=== PATIENT | female | born 1990 | race Caucasian/White ===

== ENCOUNTER 2016-10-16 05:29 | Emergency (ER) | payer OTHER ==
[~2016-10-16] VITALS: Ht 167.6 cm; Wt 74.3 kg
[~2016-10-16 05:29] MED LIST: HYDR1ELX13 PO; MINO80TA PO; NORGTAB39 PO
[2016-10-16 05:33] VITALS: TEMP 36.6; Ht 167.6 cm; Wt 74.3 kg
[2016-10-16] MEDS ORDERED: IUD'IUD IU (05:43)
[2016-10-16] MEDS ORDERED: SODIUM CHLORIDE 0.9% 1000ML 1,000 ML IV STA ×2 (05:48)
[2016-10-16] MEDS ORDERED: RANITIDINE HCL 50 MG/100 ML D5W IV STA (05:48)
[2016-10-16] MEDS ORDERED: ONDANSETRON INJ 2 MG/ML 2 ML VIAL IV STA (05:48)
[2016-10-16] MEDS ORDERED: ONDANSETRON INJ 2 MG/ML 2 ML VIAL ONE (05:48)
[2016-10-16] MEDS ORDERED: LIDOCAINE HCL 2% VISC SOLN 20 ML UDC PO STA (05:48)
[2016-10-16] MEDS ORDERED: ALUMINUM/MAGNESIUM SUSP 30 ML UDC PO STA ×2 (05:48→09:17)
[2016-10-16] MEDS ORDERED: RANITIDINE HCL 50 MG/100 ML D5W ONE (05:49)
[2016-10-16 06:02] LABS: BASO % 0.1 %; BASO ABS # 0.01 K/uL (0-0.2); COMPLETE YES; EOS % 0.5 %; HEMATOCRIT 40.4 % (37-47); IG% 0.1 %; LYMPH % 16.5 %; LYMPH ABS # 1.31 K/uL (1.2-3.4); MEAN CELL VOLUME 88.4 fL (80-100); MEAN CORPUSCULAR HEMOGLOBIN 30.9 pg (25-34); MEAN CORPUSCULAR HGB CONC 34.9 g/dl (32-36); MONO % 3.7 %; NEUT % 79.1 %; PLATELET COUNT 268 K/uL (130-400); RED BLOOD COUNT 4.57 M/uL (4.2-5.4); WHITE BLOOD COUNT 7.94 K/uL (4.8-10.8)
[2016-10-16] MEDS ORDERED: PANT40TA PO (06:04)
[2016-10-16 06:18] LABS: BUN/CREATININE RATIO 16.8 (10-20); CALCIUM 8.9 mg/dl (8.5-10.1); CREATININE 0.85 mg/dl (0.60-1.20); POTASSIUM 3.6 mmol/L (3.5-5.1)
[2016-10-16 06:39] LABS: PREG INTERNAL NEGATIVE QC NEG CLEAR BACKGROUND; PREG INTERNAL POSITIVE QC POS CONTROL LINE
[2016-10-16] MEDS ORDERED: DiphenhydrAMINE HCL 50 MG/ML VIAL IV STA (06:57)
[2016-10-16] MEDS ORDERED: METOCLOPRAMIDE HCL INJ 5 MG/ML 2 ML VIAL IV STA (06:57)
--- NOTE | 2016-10-16 07:17 | DIAGNOSTIC IMAGING REPORT ---
ABDOMINAL ULTRASOUND, RIGHT UPPER QUADRANT HISTORY: Epigastric pain. COMPARISON: None. FINDINGS: Liver morphology is normal. A 1.2 cm echogenic right hepatic lobe lesion likely reflects a hemangioma. There is no biliary ductal dilatation. No gallstones are identified. There is trace sludge within the gallbladder. No gallbladder wall thickening is noted. The pancreas is within normal limits by sonography. There is no right hydronephrosis. IMPRESSION: 1. No gallstones or biliary ductal dilatation. 2. Trace sludge within the gallbladder. No gallbladder wall thickening. 3. 1.2 cm echogenic right hepatic lobe lesion which likely reflects a hemangioma. Electronically signed by: Zafar Del Rio M.D. 10/16/2016 7:15 AM Dictated Date/Time: 10/16/2016 7:13 AM
[2016-10-16] MEDS ORDERED: MoRPHine SULFATE 4 MG/ML 1 ML CARP\\VIAL IV STA (08:11)
[2016-10-16 09:09] LABS: URINE APPEARANCE CLEAR (CLEAR); URINE BILIRUBIN NEG (NEG); URINE COLOR YELLOW; URINE NITRITE NEG (NEG); URINE PH >= 9.0 (4.5-7.5); UROBILINOGEN NEG (NEG); ZZUR CULT IF INDIC CLEAN CATCH NO
[2016-10-16 09:15] LABS: MANUAL MICROSCOPIC REQUIRED? NO; REVIEW REQ? NO
[2016-10-16 09:29] VITALS: BP 120/81; PULSE 67; O2SAT 100
--- NOTE | 2016-10-16 09:42 | EMERGENCY ROOM VISIT NOTE ---
ED Visit Note Care of this patient was signed out to me by Inge Mayfield PA-C at change of shift. Please see her dictation for full ED course and history. At that time, the patient was awaiting ultrasound results. Ultrasound was read by radiology as below and did show trace sludge, but no findings of acute cholecystitis. Patient was reevaluated and findings were discussed. At that time, she was complaining of continued discomfort. Abdominal exam revealed diffuse mild tenderness with no focal tenderness. She was given 4 mg morphine and a GI cocktail with significant improvement of her symptoms. She will be discharged home on Protonix and will follow-up with her primary care provider or return here as needed. ABDOMINAL ULTRASOUND, RIGHT UPPER QUADRANT FINDINGS: Liver morphology is normal. A 1.2 cm echogenic right hepatic lobe lesion likely reflects a hemangioma. There is no biliary ductal dilatation. No gallstones are identified. There is trace sludge within the gallbladder. No gallbladder wall thickening is noted. The pancreas is within normal limits by sonography. There is no right hydronephrosis. IMPRESSION: 1. No gallstones or biliary ductal dilatation. 2. Trace sludge within the gallbladder. No gallbladder wall thickening. 3. 1.2 cm echogenic right hepatic lobe lesion which likely reflects a hemangioma.
--- NOTE | 2016-10-17 00:44 | EMERGENCY ROOM VISIT NOTE ---
History First contact with patient: 05:43 Chief Complaint: ABDOMINAL PAIN Stated Complaint: NAUSEA,VOMITING,ABDOMINAL PAIN 24HRS Nursing Triage Summary: Diffuse abdominal pain Monday night, better Monday morning, could eat, but still didn't feel well. No alcohol at game Monday. Woke up at 2400 with vomiting. Current nausea and epigastric pain. No bowel movement for 2 days. History of Present Illness The patient is a 26 year old female who presents to the Emergency Room with complaints of nausea, vomiting and epigastric discomfort for the past day. Patient was a few episodes of vomiting that is nonbloody nonbilious non-coffee- ground in nature. Pain currently 5 out of 10. Described as irritating, nothing makes it better or worse. It does not radiate. Status post appendectomy. Patient denies chest pain, dyspnea, fever, chills, diarrhea, back pain, urinary symptoms. No history of similar symptoms in the past. No bad food exposure. Review of Systems See HPI for pertinent positives & negatives. A total of 10 systems reviewed and were otherwise negative. Past Medical/Surgical History Appendectomy Social History Smoking Status: Never Smoker Smokeless Tobacco Use: No Alcohol Use: occasionally Drug Use: none Occupation Status: student Current/Historical Medications Scheduled Iud's ([facility] Intrauterine Director Of Neurology), IU CONTINOUS Pantoprazole (Protonix), 40 MG PO DAILY Physical Exam Vital Signs Date Time Temp Pulse Resp B/P (MAP) Pulse Ox O2 Delivery O2 Flow Rate FiO2 10/16/16 09:29 67 16 120/81 100 10/16/16 09:26 67 15 120/81 10/16/16 08:33 66 16 119/80 10/16/16 07:59 78 18 114/81 10/16/16 07:05 54 16 122/78 99 Room Air 10/16/16 06:16 57 10/16/16 05:33 36.6 71 20 141/100 99 Room Air Physical Exam VITALS: Vitals are noted on the nurse's note and reviewed by myself. Vital signs stable. GENERAL: Pleasant female, in no acute distress, nondiaphoretic, well-developed well-nourished. SKIN: Capillary reflex less than 2 seconds. HEENT: Normocephalic. PERRLA. EOMI. Nares patent. Mucous membranes mildly dry. Neck is supple without nuchal rigidity. HEART: Regular rate and rhythm without murmurs gallops or rubs. LUNGS: Clear to auscultation bilaterally without wheezes, rales or rhonchi. No retractions or accessory muscle use. ABDOMEN: Positive bowel sounds x 4. Normal tympanic percussion. Soft, minimally tender epigastric region, without masses or organomegaly. Lemus sign negative. No guarding or rebound tenderness. No CVA tenderness MUSCULOSKELETAL: No gross musculoskeletal defects. No pedal edema. No calf tenderness. NEURO: Patient was alert and oriented to person place and time. Normal sensation to light and sharp touch. No focal neurological deficits. Medical Decision & Procedures Laboratory Results 10/16/16 05:46 Red Blood Count 4.57, Mean Corpuscular Volume 88.4, Mean Corpuscular Hemoglobin 30.9, Mean Corpuscular Hemoglobin Concent 34.9, Mean Platelet Volume 10.0, Neutrophils (%) (Auto) 79.1, Lymphocytes (%) (Auto) 16.5, Monocytes (%) (Auto) 3.7, Eosinophils (%) (Auto) 0.5, Basophils (%) (Auto) 0.1, Neutrophils # (Auto) 6.28, Lymphocytes # (Auto) 1.31, Monocytes # (Auto) 0.29, Eosinophils # (Auto) 0.04, Basophils # (Auto) 0.01 10/16/16 05:46 Test 10/16/16 05:46 10/16/16 08:52 White Blood Count 7.94 K/uL (4.8-10.8) Red Blood Count 4.57 M/uL (4.2-5.4) Hemoglobin 14.1 g/dL (12.0-16.0) Hematocrit 40.4 % (37-47) Mean Corpuscular Volume 88.4 fL (80-100) Mean Corpuscular Hemoglobin 30.9 pg (25-34) Mean Corpuscular Hemoglobin Concent 34.9 g/dl (32-36) Platelet Count 268 K/uL (130-400) Mean Platelet Volume 10.0 fL (7.4-10.4) Neutrophils (%) (Auto) 79.1 % Lymphocytes (%) (Auto) 16.5 % Monocytes (%) (Auto) 3.7 % Eosinophils (%) (Auto) 0.5 % Basophils (%) (Auto) 0.1 % Neutrophils # (Auto) 6.28 K/uL (1.4-6.5) Lymphocytes # (Auto) 1.31 K/uL (1.2-3.4) Monocytes # (Auto) 0.29 K/uL (0.11-0.59) Eosinophils # (Auto) 0.04 K/uL (0-0.5) Basophils # (Auto) 0.01 K/uL (0-0.2) RDW Standard Deviation 36.3 fL (36.4-46.3) RDW Coefficient of Variation 11.3 % (11.5-14.5) Immature Granulocyte % (Auto) 0.1 % Immature Granulocyte # (Auto) 0.01 K/uL (0.00-0.02) Anion Gap 8.0 mmol/L (3-11) Est Creatinine Clear Calc Drug Dose 102.4 ml/min Estimated GFR () 108.8 Estimated GFR (Non- 93.9 BUN/Creatinine Ratio 16.8 (10-20) Calcium Level 8.9 mg/dl (8.5-10.1) Total Bilirubin 0.5 mg/dl (0.2-1) Direct Bilirubin 0.1 mg/dl (0-0.2) Aspartate Amino Transf (AST/SGOT) 12 U/L (15-37) Alanine Aminotransferase (ALT/SGPT) 20 U/L (12-78) Alkaline Phosphatase 69 U/L (45-117) Total Protein 7.7 gm/dl (6.4-8.2) Albumin 4.4 gm/dl (3.4-5.0) Lipase 140 U/L (73-393) Human Chorionic Gonadotropin, Qual NEG (NEG) Urine Color YELLOW Urine Appearance CLEAR (CLEAR) Urine pH >= 9.0 (4.5-7.5) Urine Specific [place] 1.020 (1.000-1.030) Urine Protein NEG (NEG) Urine Glucose (UA) NEG (NEG) Urine Ketones NEG (NEG) Urine Occult Blood NEG (NEG) Urine Nitrite NEG (NEG) Urine Bilirubin NEG (NEG) Urine Urobilinogen NEG (NEG) Urine Leukocyte Esterase NEG (NEG) Medications Administered Medications (Trade) Dose Ordered Sig/Whitney Route Start Time Stop Time Status Last Admin Dose Admin Lidocaine HCl (Viscous Lidocaine 2% Soln) 10 ml NOW STAT PO 9/3/17 05:48 10/16/16 05:50 DC 10/16/16 08:20 10 ML Al Hydroxide/Mg Hydroxide (Maalox Susp) 30 ml NOW STAT PO 10/16/16 05:48 10/16/16 05:50 DC 10/16/16 08:20 30 ML Ondansetron HCl (Zofran Inj) 4 mg NOW STAT IV 10/16/16 05:48 10/16/16 05:50 DC 10/16/16 05:57 4 MG Ranitidine HCl (zANTac IV) 50 mg NOW STAT IV 10/16/16 05:48 10/16/16 05:50 DC 10/16/16 05:55 50 MG Sodium Chloride 1,000 ml @ 999 mls/hr Q1H1M STAT IV 10/16/16 05:48 10/16/16 06:48 DC 10/16/16 05:52 999 MLS/HR Sodium Chloride 1,000 ml @ 125 mls/hr Q8H STAT IV 10/16/16 05:48 10/16/16 10:06 DC 10/16/16 07:05 125 MLS/HR Metoclopramide HCl (Reglan Inj) 10 mg NOW STAT IV 10/16/16 06:57 10/16/16 06:58 MD 10/16/16 07:03 10 MG Diphenhydramine HCl (Benadryl Inj) 12.5 mg NOW STAT IV 10/16/16 06:57 10/16/16 06:58 MD 10/16/16 07:02 12.5 MG Morphine Sulfate (MoRPHine SULFATE INJ) 4 mg NOW STAT IV 10/16/16 08:11 10/16/16 08:13 MD 10/16/16 08:27 4 MG Al Hydroxide/Mg Hydroxide (Maalox Susp) 60 ml NOW STAT PO 10/16/16 09:17 10/16/16 09:18 DC 10/16/16 09:22 60 ML ED Course Prior records/ancillary studies reviewed. Triage Nursing notes reviewed. Additional history obtained from the family. The patient's history was concerning for nausea, vomiting, and abdominal pain. Differential diagnosis: Etiologies such as gastritis, food borne illness, infections, , diverticulitis, inflammatory bowel disease, obstruction, GI bleed, biliary pathology, as well as others were entertained. Physical examination findings: As above. Abdominal examination revealed minimal epigastric tenderness. Vital signs reviewed and revealed stable. ER treatment provided: IV hydration 1 L NSS. Zofran, Zantac, GI cocktail On reassessment the patient felt better. Patient was tolerating p.o. intake. Diagnostics interpretation by me: The labs revealed no worrisome leukocytosis. No worrisome electrolyte abnormality Imaging studies: Ultrasound negative for cholecystitis This appears to be consistent with epigastric discomfort most likely from gastritis and vomiting. Patient was pending reevaluation at time of shift change. She was signed out to Laney Randolph PA-C, pending medication and reevaluation in stable condition. Patient was neurovascularly and neurologically intact. She does not have acute abdomen on exam. She is tolerating fluids. She felt much better. She was advised to follow-up with family care in a few days or here in the ER sooner for abdominal pain, black or blood in the stool, vomiting, worsening signs or symptoms or needed. Patient does not have acute abdomen on exam. She is well-appearing. By the evaluation outlined above emergent etiologies such as diverticulitis, obstruction, cardiac sources, mesenteric ischemia, aortic pathology, inflammatory bowel disease, renal colic, PUD, biliary pathology, UTI, as well as others were deemed relatively unlikely. The pt informed about the findings as listed above. All questions were answered and pleased with the treatment. Return instructions were outlined and the patient was discharged in stable condition. Outpatient prescription management: Protonix, Zofran Referral: The patient was referred to their primary care physician for follow-up in 2 to 3 days for a recheck of the current condition. Case reviewed with my attending. Medical Decision As above Medication Reconcilliation Current Medication List: was personally reviewed by me Blood Pressure Screening Patient's blood pressure: Elevated blood pressure Blood pressure disposition: Elevated BP felt to be situational Impression Primary Impression: Vomiting Additional Impression: Abdominal discomfort, epigastric Departure Information Dispostion Home / Self-Care Condition GOOD Prescriptions Pantoprazole (Protonix) 40 Mg Tab 40 MG PO DAILY for 14 Days, #14 TAB Prov: Patricia Mayfield .JERONIMO 10/16/16 Referrals No Doctor, Assigned (PCP) Patient Instructions My [facility] Additional Instructions DO NOT drive, drink alcohol, operate machinery, or perform dangerous activities today. You were given medications in the ER that can affect your ability to safely function or operate a vehicle. Protonix 40 m tablet daily for next 2 weeks. Take this on an empty stomach. Try Maalox or Zantac for breakthrough symptoms for reflux. Zofran(odansetron) tablets 4mg: Take one and allow it to dissolve in your mouth every four to six hours as needed for nausea or vomiting. Rest and drink plenty of fluids as tolerated. Slow sips of water or sports drinks are recommended instead of large amounts all at once. Continue current medications. Once your stomach is settled start with a clear liquid diet (jello, soup broth, etc.) and then advance as tolerated. You should avoid full, heavy meals for about 24 hrs from the time your symptoms resolved. Return to the ER for persistent vomiting, fevers, abdominal pain, chest pains, difficulty breathing, black or bloody stools, worsening of your condition, or as needed. Follow up with your primary physician in 2-3 days for a recheck of your current condition. Problem Qualifiers Primary Impression: Vomiting Vomiting type: unspecified Vomiting Intractability: non-intractable Nausea presence: with nausea Qualified Codes: R11.2 - Nausea with vomiting, unspecified
== END 2016-10-16 09:33 | disposition home or self-care (01) ==
LOC: C.EDB 05:30 → C.EDA 09:33
DX: R11.2 Nausea with vomiting, unspecified (principal); R10.13 Epigastric pain; Z79.899 Other long term (current) drug therapy; Z97.5 Presence of (intrauterine) contraceptive device

== ENCOUNTER → 2017-02-03 | Outpatient (CLI) | payer OTHER ==
[~2017-02-03] MED LIST changes: -HYDR1ELX13 PO; +IUD'IUD IU; -MINO80TA PO; -NORGTAB39 PO
== END | disposition home or self-care (01) ==
LOC: C.PATH 14:54
PROVIDERS: ATTEND Obstetrics & Gynecology
DX: N87.1 Moderate cervical dysplasia (principal)

== ENCOUNTER → 2017-06-06 | Outpatient (CLI) | payer OTHER | END | disposition home or self-care (01) | LOC: C.PATHSPEC 16:07 | PROVIDERS: ATTEND Obstetrics & Gynecology | DX: N87.1 Moderate cervical dysplasia (principal) ==

== ENCOUNTER → 2017-06-06 | Outpatient (CLI) | payer OTHER | END | disposition home or self-care (01) | LOC: C.PAPS 18:11 | PROVIDERS: ATTEND Obstetrics & Gynecology | DX: N87.1 Moderate cervical dysplasia (principal); Z97.5 Presence of (intrauterine) contraceptive device ==

== ENCOUNTER 2022-02-04 07:17 | Inpatient (IN) ==
[2022-02-04] MEDS ORDERED: LACTATED RINGER'S 2,000 ML IV ONE (07:58)
[2022-02-04] MEDS: LACTATED RINGER'S 1,000 ML IV SCH ×2 (08:05→09:10)
--- NOTE | 2022-02-04 08:12 | History & Physical Report ---
Date of Service February 04, 2022 Assessment & Plan (1) Acute dehydration: (2) Nausea and vomiting during : Plan: 31 yo at 37+ wsk with N&V for 3 days, dehydration, COVID 19 a month ago VSS afebrile No s/s of LOF nor labor FHR reassuring Plan to observe, monitor, labs, IVF bolus,consult hospitalist (3) COVID-19: (4) No leakage of amniotic fluid into vagina: History of Present Illness Chief Complaint: Nausea vomiting, leakage of fluid Primary Care Provider: [facility] Patient is a 31-year-old at 37 +weeks who takes her OB care from [facility] N&V for 3 days non stop, can not eat or drink anything, everything comes back up. She was in ER yesterday and was given IVF, Antiemetics but symptosm restarted again after she went home. BM 4 days ago, flatus + No abd pain Irregular ctxs LOF while vomiting +FM No medical problems Her has been otherwise uncomplicated No fever/ chills/ dysuria/ flank pain She had COVID a month ago and recovered well. Tested + yesterday in ER Allergies Allergy/AdvReac Type Severity Reaction Status Date / Time aspirin Allergy Unknown HIVES;LIPS Verified 06/21/13 05:39 SWELL ibuprofen Allergy Unknown HIVES;LIPS Verified 06/21/13 05:39 SWELL Sulfa (Sulfonamide Allergy Unknown HIVES;LIPS Verified 06/21/13 05:39 Antibiotics) SWELL Home Medications Medication Instructions Recorded Confirmed Type IUD'S ([facility] INTRAUTERINE ENERGY CONSERVATION SPECIALIST) intrauterine CONTINOUS ##0 10/16/16 History metoclopramide HCl 10 mg tablet 10 mg PO Q6H PRN nausea and 02/03/22 Rx (Reglan) vomiting #20 tabs Patient History Medical History Social History Smoking Status: Never smoker Preferred Language: Sinhala Feels Safe at Home: Yes [place] [employer] History No STD Review of Systems as per Subjective / HPI and + malaise Physical Exam Constitutional: WD/WN, vitals as above + frail appearing and + malnourished Vomiting green material Gastrointestinal (Abdomen): normal bowel sounds, soft, nontender, no hepatosplenomegaly (gravid, NT) Genitourinary: normal external appearance (DRY, no leaking on cough) OB Exam Abdomen: + vertex Manual OB Exam: + cervical dilation 1 cm, + cervical effacement 50% and + station -2 OB Exam Monitor Tracing: + external uterine monitor used (ctxs q 5-6 min) and + category I Amnisure negative
[2022-02-04] MEDS ORDERED: PANTOprazole 40 MG in SYRINGE 0 ML IV ONE (08:15)
[2022-02-04] MEDS: ONDANSETRON INJ 2 MG/ML 2 ML VIAL IV PRN ×2 (08:27→15:56)
[2022-02-04 09:30] LABS: Basophils # (auto) 0.01 K/uL (0-0.2); Basophils % (auto) 0.1 %; Hematocrit (blood only) 36.7 % (34.1-44.9); Hemoglobin 12.5 g/dl (12.0-16.0); Immature Granulocytes # (auto) 0.08 K/uL (0.00-0.02); Immature Granulocytes % (auto) 0.7 %; Lymphocytes # (auto) 1.36 K/uL (1.2-3.4); Mean Corpuscular Hgb Conc 34.1 g/dL (32.0-36.0); Mean Corpuscular Volume 91.1 fL (80.0-100.0); Mean Platelet Volume 9.9 fL (9.4-12.3); Monocytes % (auto) 3.5 %; Neutrophils # (auto) 9.44 K/uL (1.4-6.5); Neutrophils % (auto) 83.7 %; Platelet Count 244 K/uL (130-400); RDW Coefficient of Variation 11.5 % (11.5-14.5); RDW Standard Deviation 38.4 fL (36.4-46.3); Red Blood Count 4.03 M/uL (3.93-5.22); White Blood Count 11.29 K/ul (4.8-10.8)
[2022-02-04] MEDS: PROMETHAZINE HCL 25 MG in SODIUM CHLORIDE 0.9% 50 ML IV PRN (09:36)
[2022-02-04 09:58] LABS: Appearance Urine Clear (Clear); Bacteria Urine Automated 1+ (Negative); Bilirubin Urine Negative (Negative); Blood Urine 2+ (Negative); Color Urine Yellow; Epithelial Cell Urine Auto >30 /lpf (0-5); Glucose Urine UA Negative (Negative); Ketones Urine 4+ (Negative); Leukocyte Esterase Urine Negative (Negative); Nitrite Urine Negative (Negative); Protein Urine 1+ (Negative); Specific Gravity Urine 1.028 (1.000-1.030); Urobilinogen Urine Negative (Negative); pH Urine 5.5 (4.5-7.5)
[2022-02-04] MEDS ORDERED: MULTI VITAMIN INFUSION IV SCH (10:00)
[2022-02-04] MEDS ORDERED: LACTATED RINGER S IV SCH (10:00)
[2022-02-04 10:01] LABS: Albumin Globulin Ratio 1.2 (0.9-2); Albumin Level 3.6 gm/dl (3.4-5.0); BUN Creatinine Ratio 19.7 (10-20); Bilirubin,Total 0.9 mg/dl (0.2-1.0); Calcium 8.3 mg/dl (8.5-10.1); Creatinine Clr Calc Pharmacy 140.7 ml/min; Globulin 2.9 gm/dl (2.5-4.0); Total Protein 6.5 gm/dl (6.0-8.3)
[2022-02-04] MEDS: LACTATED RINGER'S 1,000 ML IV PRN ×2 (10:50→14:53)
[2022-02-04] MEDS ORDERED: LACTATED RINGER'S 1,000 ML IV ONE (11:35)
--- NOTE | 2022-02-04 11:39 | Labor Progress Brief Note ---
Date of Service February 04, 2022 Subjective still has nausea and vomiting persisting despite IV fluid bolus Constitutional: as per Subjective / HPI and + malaise Assessment & Plan (1) Acute dehydration: Plan IV hydration Physical Exam Constitutional: WD/WN, vitals as above Gastrointestinal (Abdomen): Inspection/Auscultation: abdomen normal to inspection abdomen soft and non-tender Musculoskeletal: Extremities: extremities normal to inspection Genitourinary: OB Exam Monitor Tracing: + external FHT monitor used, + external uterine monitor used, + category I and + normal FHT variability Results & Data ([facility] [place]) Vital Signs (Past 12 Hours) Vital Signs Temp Pulse Resp BP Pulse Ox 02/04/22 10:57 36.9 C 20 02/04/22 11:30 65 99 02/04/22 11:25 71 98 02/04/22 11:14 68 98 02/04/22 11:09 68 98 02/04/22 11:04 67 99 02/04/22 10:59 75 97 02/04/22 10:54 83 99 02/04/22 10:49 106 H 100 02/04/22 10:48 101 H 153/84 H 02/04/22 10:44 74 96 Laboratory Results 02/04/22 02/04/22 02/04/22 08:38 08:54 08:54 WBC 11.29 H RBC 4.03 Hgb 12.5 Hct 36.7 MCV 91.1 MCH 31.0 MCHC 34.1 RDW Std Deviation 38.4 RDW Coeff of Alonso 11.5 Plt Count 244 MPV 9.9 Immature Gran % (Auto) 0.7 Neut % (Auto) 83.7 Lymph % (Auto) 12.0 Hood % (Auto) 3.5 Eos % (Auto) 0.0 Baso % (Auto) 0.1 Neut # (Auto) 9.44 H Lymph # (Auto) 1.36 Hood # (Auto) 0.40 Eos # (Auto) 0.00 Baso # (Auto) 0.01 Immature Gran # (Auto) 0.08 H Sodium 135 L Potassium 4.0 Chloride 104 Carbon Dioxide 20 L Anion Gap 11 BUN 12 Creatinine 0.61 Est Cr Clr Drug Dosing 140.7 Est GFR ( Amer) 139.0 Est GFR (Non-Af Amer) 120.0 BUN/Creatinine Ratio 19.7 Glucose 78 Calcium 8.3 L Total Bilirubin 0.9 AST 10 L ALT 6 L Alkaline Phosphatase 108 H Total Protein 6.5 Albumin 3.6 Globulin 2.9 Albumin/Globulin Ratio 1.2 Amylase 98 Lipase 46 Urine Color Urine Appearance Urine pH Ur Specific [place] Urine Protein Urine Glucose (UA) Urine Ketones Urine Blood Urine Nitrite Urine Bilirubin Urine Urobilinogen Ur Leukocyte Esterase Urine WBC (Auto) Urine RBC (Auto) U Hyaline Cast (Auto) U Epithel Cells (Auto) Urine Bacteria (Auto) Amniotic Protein NEG 02/04/22 09:35 WBC RBC Hgb Hct MCV MCH MCHC RDW Std Deviation RDW Coeff of Alonso Plt Count MPV Immature Gran % (Auto) Neut % (Auto) Lymph % (Auto) Hood % (Auto) Eos % (Auto) Baso % (Auto) Neut # (Auto) Lymph # (Auto) Hood # (Auto) Eos # (Auto) Baso # (Auto) Immature Gran # (Auto) Sodium Potassium Chloride Carbon Dioxide Anion Gap BUN Creatinine Est Cr Clr Drug Dosing Est GFR ( Amer) Est GFR (Non-Af Amer) BUN/Creatinine Ratio Glucose Calcium Total Bilirubin AST ALT Alkaline Phosphatase Total Protein Albumin Globulin Albumin/Globulin Ratio Amylase Lipase Urine Color Yellow Urine Appearance Clear Urine pH 5.5 Ur Specific [place] 1.028 Urine Protein 1+ H Urine Glucose (UA) Negative Urine Ketones 4+ H Urine Blood 2+ H Urine Nitrite Negative Urine Bilirubin Negative Urine Urobilinogen Negative Ur Leukocyte Esterase Negative Urine WBC (Auto) 5-10 H Urine RBC (Auto) 5-10 H U Hyaline Cast (Auto) 1-5 U Epithel Cells (Auto) >30 H Urine Bacteria (Auto) 1+ H Amniotic Protein
[2022-02-04] MEDS ORDERED: OXYTOCIN 30 UNITS/500 ML BAG IV PRN ×2 (12:09→15:24)
[2022-02-04] MEDS ORDERED: LIDOCAINE 1% LOCAL 20 ML VIAL INFIL PRN (12:09)
[2022-02-04 12:32] LABS: Hematocrit (blood only) 37.1 % (34.1-44.9); Hemoglobin 12.7 g/dl (12.0-16.0); Mean Corpuscular Hemoglobin 31.1 pg (25.0-34.0); Mean Corpuscular Hgb Conc 34.2 g/dL (32.0-36.0); Mean Corpuscular Volume 90.9 fL (80.0-100.0); Mean Platelet Volume 9.6 fL (9.4-12.3); Platelet Count 234 K/uL (130-400); RDW Coefficient of Variation 11.7 % (11.5-14.5); RDW Standard Deviation 38.5 fL (36.4-46.3); Red Blood Count 4.08 M/uL (3.93-5.22); White Blood Count 16.51 K/ul (4.8-10.8)
--- NOTE | 2022-02-04 12:57 | Consultation ---
Date of Consultation February 04, 2022 Assessment & Plan (1) Nausea and vomiting during : - persistent n/v at 37+ weeks gestation - labs remarkable only for leukocytosis and bicarb 20 likely due to vomiting, dehydration - UA positive for WBC, ketones, bacteria - will defer to OB whether they would treat this - given WBC, could consider treating positive UA - would also recommend checking blood cultures - lipase, amylase negative - cannot rule out pancretitis based on labs alone - imaging would need to be considered, could start with abdominal ultrasound but unclear of utility in 37 weeks patient - added on hepatitis panel, althought LFTs are wnl - Triglycerides mildly elevated and would not precipitate pancreatitis at this level - would continue with supportive care and anti-emetics for now - monitor for BMs as patient has been constipated since Monday - if imaging considered would start with abdominal/RUQ ultrasound for now (2) Acute dehydration: - continue IVF as has been started (3) COVID-19: - had reproted diagnosis 1 month prior to admission - positive again 02/03/ - can consider repeating - unclear if contributing to current symptoms or if this represents reinfection - not hypoxic and afebrile - no indication for treatment for COVID19 at this time Plan Thank you for the consultation, we will continue to follow. [facility] any questions or concerns. Poncho Blake MD Hospital Medicine History of Present Illness Requesting Physician: Dr. Marlon Galvan Reason for Consultation: persistent nausea and vomiting Attending Physician: Kimberly Shepherd MD History of Present Illness The patient is a 31 year old woman at 37+ weeks gestation who presented with 3 days of unremitting n/v. She reports this started Monday02/01/2022 with nausea and vomiting. She denied abdominal pain until yesterday prior to admission and denied any vaginal discharge or bleeding. She denies diarrhea and has not had a BM since 02/01/2022. She reports minimal PO intake of crackers mostly and some water but otherwise unable to tolerate PO. She denied fever or chills, shortness of breath, chest pain, cough, dysuria. Patient reportedly had COVID 1 month ago and symptoms have resolved since. She tested positive in the ED again on presentation. She received IVF and anti- emetics with some response since hospitalization. She is having contractions and is admitted to the L&D service for monitoring. The patient has had stable vital signs since admission. Labs were significant for WBC 11-->16. Cr is wnl. UA positive for WBC and bacteria. Allergies Allergy/AdvReac Type Severity Reaction Status Date / Time aspirin Allergy Unknown HIVES;LIPS Verified 06/21/13 05:39 SWELL ibuprofen Allergy Unknown HIVES;LIPS Verified 06/21/13 05:39 SWELL Sulfa (Sulfonamide Allergy Unknown HIVES;LIPS Verified 06/21/13 05:39 Antibiotics) SWELL Home Medications Medication Instructions Recorded Confirmed Type metoclopramide HCl 10 mg tablet 10 mg PO Q6H PRN nausea and 02/03/22 02/04/22 Rx (Reglan) vomiting #20 tabs prenat.vits,noé,kva-yqxe-ztmak 1 tab PO DAILY 02/04/22 02/04/22 History Patient History Medical History (Updated 02/04/22 @ 11:38 by Doron Farley MD) Acute dehydration Surgical History (Updated 02/04/22 @ 08:45 by Keely Alejo RN) History of appendectomy History of tonsillectomy and adenoidectomy Family History (Updated 02/04/22 @ 08:46 by Keely Alejo RN) Mother Melanoma Mother Lymphoma Social History (Updated 02/04/22 @ 08:48 by Keely Alejo RN) Smoking Status: Never smoker Hx Alcohol Use: No Hx Substance Use: No Preferred Language: Urdu Communication Ability: Effective Visual Impairment: No Limitations Hearing Ability: Normal Biological Lab Technician Required: No Beliefs That Will Affect Care: None marital status: Current Living Situation: Spouse Current Living Situation Comment: Lives with current occupational status: employed 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 NECK: No stridor, no adenopathy, no meningismus, trachea is midline. LUNGS: Clear to auscultation bilaterally, no wheeze, no rhonchi, breath sounds equal. HEART: 2/6 systolic murmur, regular rate and rhythm. ABDOMEN: Soft, nontender, bowel sounds positive, no peritonitis. Gravid uterus. EXTREMITIES: No cyanosis or edema, full range of motion of all the joints without pain or difficulty, no signs for acute trauma. NEUROLOGIC: Oriented x 3, no acute motor or sensory deficits, no focal weakness. SKIN: No rash, no jaundice, no diaphoresis. Results & Data ([facility]) Vital Signs (Past 12 Hours) Vital Signs Temp Pulse Resp BP Pulse Ox 02/04/22 10:57 36.9 C 20 02/04/22 12:05 73 99 02/04/22 12:00 72 99 02/04/22 11:55 71 100 02/04/22 11:50 81 99 02/04/22 11:45 72 98 02/04/22 11:40 72 99 02/04/22 11:35 68 99 02/04/22 11:30 65 99 02/04/22 11:25 71 98 02/04/22 11:14 68 98 02/04/22 11:09 68 98 02/04/22 11:04 67 99 02/04/22 10:59 75 97 02/04/22 10:54 83 99 02/04/22 10:49 106 H 100 02/04/22 10:48 101 H 153/84 H 02/04/22 10:44 74 96 Diagnostic Findings Laboratory Results WBC 16.51 K/ul (4.8-10.8) H 02/04/22 12: RBC 4.08 M/uL (3.93-5.22) 02/04/22 12:21 Hgb 12.7 g/dl (12.0-16.0) 02/04/22 12:21 Hct 37.1 % (34.1-44.9) 02/04/22 12:21 MCV 90.9 fL (80.0-100.0) 02/04/22 12:21 MCH 31.1 pg (25.0-34.0) 02/04/22 12:21 MCHC 34.2 g/dL (32.0-36.0) 02/04/22 12:21 RDW Std Deviation 38.5 fL (36.4-46.3) 02/04/22 12:21 RDW Coeff of Alonso 11.7 % (11.5-14.5) 02/04/22 12:21 Plt Count 234 K/uL (130-400) 02/04/22 12:21 MPV 9.6 fL (9.4-12.3) 02/04/22 12:21 Immature Gran % (Auto) 0.7 % 02/04/22 08:54 Neut % (Auto) 83.7 % 02/04/22 08:54 Lymph % (Auto) 12.0 % 02/04/22 08:54 [place] % (Auto) 3.5 % 02/04/22 08:54 Eos % (Auto) 0.0 % 02/04/22 08:54 Baso % (Auto) 0.1 % 02/04/22 08:54 Neut # (Auto) 9.44 K/uL (1.4-6.5) H 02/04/22 08:54 Lymph # (Auto) 1.36 K/uL (1.2-3.4) 02/04/22 08:54 [place] # (Auto) 0.40 K/uL (0.24-0.82) 02/04/22 08:54 Eos # (Auto) 0.00 K/uL (0-0.50) 02/04/22 08:54 Baso # (Auto) 0.01 K/uL (0-0.2) 02/04/22 08:54 Immature Gran # (Auto) 0.08 K/uL (0.00-0.02) H 02/04/22 08:54 Sodium 135 mmol/L (136-145) L 02/04/22 08:54 Potassium 4.0 mmol/L (3.5-5.1) 02/04/22 08:54 Chloride 104 mmol/L (98-107) 02/04/22 08:54 Carbon Dioxide 20 mmol/L (21-32) L 02/04/22 08:54 Anion Gap 11 (3-11) 02/04/22 08:54 BUN 12 mg/dl (6-23) 02/04/22 08:54 Creatinine 0.61 mg/dl (0.6-1.2) 02/04/22 08:54 Est Cr Clr Drug Dosing 140.7 ml/min 02/04/22 08:54 Est GFR ( Amer) 139.0 ml/min 02/04/22 08:54 Est GFR (Non-Af Amer) 120.0 ml/min 02/04/22 08:54 BUN/Creatinine Ratio 19.7 (10-20) 02/04/22 08:54 Glucose 78 mg/dl (70-99(Fasting)) 02/04/22 08:54 Calcium 8.3 mg/dl (8.5-10.1) L 02/04/22 08:54 Total Bilirubin 0.9 mg/dl (0.2-1.0) 02/04/22 08:54 AST 10 U/L (13-39) L 02/04/22 08:54 ALT 6 U/L (7-52) L 02/04/22 08:54 Alkaline Phosphatase 108 U/L (34-104) H 02/04/22 08:54 Total Protein 6.5 gm/dl (6.0-8.3) 02/04/22 08:54 Albumin 3.6 gm/dl (3.4-5.0) 02/04/22 08:54 Globulin 2.9 gm/dl (2.5-4.0) 02/04/22 08:54 Albumin/Globulin Ratio 1.2 (0.9-2) 02/04/22 08:54 Triglycerides 243 mg/dl (0-150) H 02/04/22 11:19 Amylase 98 U/L (25-115) 02/04/22 08:54 Lipase 46 U/L (11-82) 02/04/22 08:54 Urine Color Yellow 02/04/22 09:35 Urine Appearance Clear (Clear) 02/04/22 09:35 Urine pH 5.5 (4.5-7.5) 02/04/22 09:35 Ur Specific [place] 1.028 (1.000-1.030) 02/04/22 09:35 Urine Protein 1+ (Negative) H 02/04/22 09:35 Urine Glucose (UA) Negative (Negative) 02/04/22 09:35 Urine Ketones 4+ (Negative) H 02/04/22 09:35 Urine Blood 2+ (Negative) H 02/04/22 09:35 Urine Nitrite Negative (Negative) 02/04/22 09:35 Urine Bilirubin Negative (Negative) 02/04/22 09:35 Urine Urobilinogen Negative (Negative) 02/04/22 09:35 Ur Leukocyte Esterase Negative (Negative) 02/04/22 09:35 Urine WBC (Auto) 5-10 /hpf (0-5) H 02/04/22 09:35 Urine RBC (Auto) 5-10 /hpf (0-4) H 02/04/22 09:35 U Hyaline Cast (Auto) 1-5 /lpf (0-5) 02/04/22 09:35 U Epithel Cells (Auto) >30 /lpf (0-5) H 02/04/22 09:35 Urine Bacteria (Auto) 1+ (Negative) H 02/04/22 09:35 Amniotic Protein NEG 02/04/22 08:38 Medications Administered Current Inpatient Medications Promethazine HCl 25 mg/ Sodium (Chloride) 51 mls @ 204 mls/hr IV Q6H PRN PRN Reason: Nausea And Vomiting Stop: 03/06/22 07:52 Last Admin: 02/04/22 09:36 Dose: 204 mls/hr Lactated Ringer's (Lr) 1,000 mls @ 125 mls/hr IV .Q8H PRN; Protocol PRN Reason: L&D Protocol Stop: 02/06/22 12:08 Last Admin: 02/04/22 10:50 Dose: 125 mls/hr Oxytocin (Pitocin) 30 units in 500 mls @ 333.333 mls/hr IV .Q1H30M PRN; Protocol PRN Reason: Bleeding Control Stop: 03/06/22 12:08 Lidocaine HCl (Lidocaine 1% Local 20 Ml Vial) 20 ml INFIL ONCE PRN PRN Reason: Perineal/vaginal Repair Stop: 03/06/22 12:08 Metoclopramide HCl (Metoclopramide Hcl Inj 5 Mg/Ml 2 Ml Vial) 10 mg IV Q6H PRN PRN Reason: Nausea Stop: 03/06/22 07:53 Misoprostol (Misoprostol 50 Mcg Tab) 50 mcg PO Q4 RAHEL Stop: 03/06/22 15:59 Ondansetron HCl (Ondansetron Inj 2 Mg/Ml 2 Ml Vial) 4 mg IV Q4H PRN PRN Reason: Nausea And Vomiting Stop: 03/06/22 07:52 Last Admin: 02/04/22 08:27 Dose: 4 mg Ondansetron HCl (Ondansetron 4 Mg Od Tab) 4 mg PO Q4H PRN PRN Reason: Nausea And Vomiting Stop: 03/06/22 07:52
[2022-02-04] MEDS ORDERED: miSOPROStoL 50 MCG TAB PO ONE (13:30)
[2022-02-04] MEDS: METOCLOPRAMIDE HCL INJ 5 MG/ML 2 ML VIAL IV PRN (13:46)
[2022-02-04] MEDS ORDERED: ePHEDrine sulfate 50 MG/ML AMP ONE (14:36)
[2022-02-04] MEDS ORDERED: SODIUM CHLORIDE 0.9% INJ 10 ML VIAL ONE (14:37)
[2022-02-04] MEDS ORDERED: fentaNYL citrate 100 MCG/2 ML VIAL ONE (14:37)
[2022-02-04] MEDS ORDERED: BUPIVACAINE 0.25% 30 ML VIAL ONE (14:38)
[2022-02-04] MEDS ORDERED: fentaNYL 2MCG/ML ROPIVACAINE 1.25MG/ML 100 ML BAG EPI ONE (14:38)
[2022-02-04] MEDS ORDERED: LIDOCAINE 2%/EPINEPHRINE 1:200,000 20 ML SDV ONE (14:38)
[2022-02-04] MEDS ORDERED: CITRIC ACID/SODIUM CITRATE 15 ML UDC ONE (16:16)
[2022-02-04] MEDS ORDERED: ePHEDrine sulfate 50 MG/ML AMP IV PRN ×2 (16:26→20:12)
[2022-02-04] MEDS ORDERED: NALBUPHINE HCL INJ 10 MG/ML AMP IV PRN ×2 (16:26→20:12)
[2022-02-04] MEDS ORDERED: NALOXONE HCL 0.4 MG/1 ML VIAL/CARP IV PRN ×2 (16:26→20:12)
[2022-02-04] MEDS ORDERED: NALOXONE HCL 1 MG in SODIUM CHLORIDE 0.9% 1000ML 1,000 ML IV PRN ×2 (16:26→20:12)
[2022-02-04] MEDS ORDERED: fentaNYL 2MCG/ML ROPIVACAINE 1.25MG/ML 100 ML BAG EPI PRN (16:26)
[2022-02-04] MEDS ORDERED: diphenhydrAMINE 50 MG/ML VIAL IV PRN ×3 (16:26→20:12)
[2022-02-04] MEDS ORDERED: OXYTOCIN 10 UNITS/ML 10ML VIAL ONE ×2 (16:26→16:28)
[2022-02-04] MEDS ORDERED: ONDANSETRON INJ 2 MG/ML 2 ML VIAL IV PRN ×3 (16:26→20:12)
--- NOTE | 2022-02-04 16:27 | Anesthesiology Consultation ---
Date of Service February 04, 2022 Assessment & Plan Chart Review Chart Review: Patient NOT seen in Pre Admission Testing and Acceptable Risk for Labor Epidural Consults Requested none ASA ASA2 Proposed Anesthesia Anesthesia Type: Labor Epidural Risk / Benefits Reviewed With: PT / POA / Parent / Guardian, Accepts Plan and Informed Consent Obtained History Height/Weight Height: 5 ft 6 in Weight: 79.379 kg Allergies Allergy/AdvReac Type Severity Reaction Status Date / Time aspirin Allergy Unknown HIVES;LIPS Verified 06/21/13 05:39 SWELL ibuprofen Allergy Unknown HIVES;LIPS Verified 06/21/13 05:39 SWELL Sulfa (Sulfonamide Allergy Unknown HIVES;LIPS Verified 06/21/13 05:39 Antibiotics) SWELL Medications Home Medications Medication Instructions Recorded Confirmed Last Taken metoclopramide HCl 10 mg tablet 10 mg PO Q6H PRN nausea and 02/03/22 02/04/22 02/03/22 23:00 (Reglan) vomiting #20 tabs prenat.vits,noé,yiu-iejt-qfrje 1 tab PO DAILY 02/04/22 02/04/22 Unknown Active Medications Generic Name Dose Route Start Last Admin Trade Name Freq PRN Reason Stop Dose Admin Promethazine HCl 25 mg/ Sodium 51 mls @ 204 mls/hr 02/04/22 07:53 02/04/22 09:36 Chloride IV 03/06/22 07:52 204 mls/hr Q6H PRN Administration Nausea And Vomiting Lactated Ringer's 1,000 mls @ 125 mls/hr 02/04/22 12:09 02/04/22 15:35 Lr IV 02/06/22 12:08 125 mls/hr .Q8H PRN Infusion L&D Protocol Protocol Metoclopramide HCl 10 mg 02/04/22 07:54 02/04/22 13:46 Metoclopramide Hcl Inj 5 Mg/Ml 2 Ml Vial IV 03/06/22 07:53 10 mg Q6H PRN Administration Nausea Ondansetron HCl 4 mg 02/04/22 07:53 02/04/22 15:56 Ondansetron Inj 2 Mg/Ml 2 Ml Vial IV 03/06/22 07:52 4 mg Q4H PRN Administration Nausea And Vomiting Past Medical History Medical History (Updated 02/04/22 @ 11:38 by Doron Farley MD) Acute dehydration Exercise / Class Metabolic Activity II 4-5 Yardwork/Stairs/Walk up hill Past Family History Family History (Updated 02/04/22 @ 08:46 by Keely Alejo, SHAMEKA) Mother Melanoma Mother Lymphoma Past Surgical History Surgical History (Updated 02/04/22 @ 08:45 by Keely Alejo, SHAMEKA) History of appendectomy History of tonsillectomy and adenoidectomy Past Anesthesia History No Hx of Anesthesia Complications and No Family Hx of Anesthesia Complications History of PONV No Hx of PONV and No Hx of Motion Sickness Social History Smoking Status: Never smoker Hx Alcohol Use: No Hx Substance Use: No substance use type: does not use Physical Exam Vital Signs Last Vital Signs Temp 36.8 C 02/04/22 15:45 Pulse 76 02/04/22 16:23 Resp 20 02/04/22 15:45 BP 126/76 02/04/22 16:19 Pulse Ox 99 02/04/22 16:23 ENMT Mouth: no dentition abnormality Thyromental Distance: > or= 3.5 Finger Breadths Mallampati Class: II Neck normal visual inspection Respiratory normal respiratory effort Auscultation: lungs clear to auscultation bilaterally Cardiovascular Rate/Rhythm: regular rate and regular rhythm Psychiatric Orientation: alert Testing Laboratory Results 02/04/22 12:21 02/04/22 08:54 Urine Color Yellow 02/04/22 09:35 Urine Appearance Clear (Clear) 02/04/22 09:35 Urine pH 5.5 (4.5-7.5) 02/04/22 09:35 Ur Specific [place] 1.028 (1.000-1.030) 02/04/22 09:35 Urine Protein 1+ (Negative) H 02/04/22 09:35 Urine Glucose (UA) Negative (Negative) 02/04/22 09:35 Urine Ketones 4+ (Negative) H 02/04/22 09:35 Urine Nitrite Negative (Negative) 02/04/22 09:35 Ur Leukocyte Esterase Negative (Negative) 02/04/22 09:35 Urine WBC (Auto) 5-10 /hpf (0-5) H 02/04/22 09:35 Urine RBC (Auto) 5-10 /hpf (0-4) H 02/04/22 09:35 U Hyaline Cast (Auto) 1-5 /lpf (0-5) 02/04/22 09:35 U Epithel Cells (Auto) >30 /lpf (0-5) H 02/04/22 09:35 Urine Bacteria (Auto) 1+ (Negative) H 02/04/22 09:35
--- NOTE | 2022-02-04 16:28 | Labor Progress Brief Note ---
Date of Service February 04, 2022 Subjective patient comfortable with epidural Assessment & Plan Admission and Anticipated Discharge Date Admission Date: February 04, 2022 Physical Exam Genitourinary: OB Exam Monitor Tracing: + external FHT monitor used, + external uterine monitor used, + category II, + normal FHT variability, + late decelerations present and + variable decelerations patient with persistent late decelerations remote from delivery recommend primary section for delivery consents signed patient and spouse in agreement Results & Data ([facility]) Vital Signs (Past 12 Hours) Vital Signs Temp Pulse Resp BP Pulse Ox 02/04/22 14:26 36.9 C 20 02/04/22 10:57 36.9 C 20 02/04/22 16:23 76 99 02/04/22 16:19 86 126/76 02/04/22 16:18 70 100 02/04/22 16:13 113 H 99 02/04/22 16:08 85 100 02/04/22 16:03 70 138/71 100 02/04/22 16:01 67 138/76 02/04/22 15:59 75 137/79 02/04/22 15:58 68 100 02/04/22 15:57 67 134/77 02/04/22 15:55 72 144/77 H 02/04/22 15:53 68 143/70 H 100 02/04/22 15:52 139 H 140/75 02/04/22 15:49 68 123/79 02/04/22 15:48 66 100 02/04/22 15:47 69 138/79 02/04/22 15:45 36.8 C 71 20 136/78 02/04/22 15:43 62 135/77 100 02/04/22 15:41 68 137/75 02/04/22 15:38 66 100 02/04/22 15:39 89 138/83 02/04/22 15:37 69 135/79 02/04/22 15:35 71 127/71 02/04/22 15:33 62 129/71 100 02/04/22 15:31 71 116/64 02/04/22 15:30 92 H 119/68 02/04/22 15:28 64 100 02/04/22 15:25 77 153/83 H 02/04/22 15:23 68 98 02/04/22 15:20 65 152/79 H 02/04/22 15:18 100 H 99 02/04/22 15:13 77 98 02/04/22 15:08 74 99 02/04/22 13:57 61 159/80 H 02/04/22 12:05 73 99 02/04/22 12:00 72 99 02/04/22 11:55 71 100 02/04/22 11:50 81 99 02/04/22 11:45 72 98 02/04/22 11:40 72 99 02/04/22 11:35 68 99 02/04/22 11:30 65 99 02/04/22 11:25 71 98 02/04/22 11:14 68 98 02/04/22 11:09 68 98 02/04/22 11:04 67 99 02/04/22 10:59 75 97 02/04/22 10:54 83 99 02/04/22 10:49 106 H 100 02/04/22 10:48 101 H 153/84 H 02/04/22 10:44 74 96
--- NOTE | 2022-02-04 16:29 | Communication Note ---
Date of Service: February 04, 2022 recurrent late decelerations. decision made to proceed to cesarian. epidural was placed less than 1 hr ago, and patient is comfortable. Will remove catheter and place SAB with intraspinal morphine.
[2022-02-04] MEDS ORDERED: LACTATED RINGER'S 1,000 ML IV SCH (16:30)
[2022-02-04] MEDS ORDERED: ceFAZolin 2000MG 2,000 MG/15 ML SYR IV SCH (16:30)
[2022-02-04] MEDS ORDERED: CITRIC ACID/SODIUM CITRATE 15 ML UDC PO SCH (16:30)
[2022-02-04] MEDS ORDERED: ONDANSETRON INJ 2 MG/ML 2 ML VIAL ONE (16:38)
[2022-02-04] MEDS ORDERED: PROPOFOL IV EMULSION 10 MG/ML 20 ML VIAL IV ONE (16:39)
[2022-02-04] MEDS ORDERED: MoRPHine SULFATE PF 1 MG/ML 10 ML AMP/VIAL ONE (16:46)
--- NOTE | 2022-02-04 18:09 | Post Operative Brief Note ---
Immediate Post Op Note v1 Date of Surgery February 04, 2022 Pre & Post Diagnosis Operation Date: 02/04/22 16:45 <No data on this case meets the specified criteria> I identified the patient and participated in the time-out.: Yes Procedure Operation Date: 02/04/22 16:45 Actual Procedures p Section in LD in OR 1 with result of live female child at 1726 - Doron Farley MD Surgeon Doron Farley MD Instructor Robotics Dr. Jennings Estimated Blood Loss 500 Findings Consistent with Post-Op Diagnosis live female Apgars 8/9 weight 6-2 Fluids LR 700 ml. Specimens placenta Drains Arriaga Catheter (Placed prior to OR) Anesthesia Type Labor Epidural Complications none Disposition Accompanied Patient To Recovery: Yes Overlapping Procedure I was present for: the critical portions of procedure. I was immediately available: during the entire case. Back up surgeon: used during listed procedure.
[2022-02-04] MEDS ORDERED: ACETAMINOPHEN 325 MG TAB PO PRN (18:14)
--- NOTE | 2022-02-04 18:25 | Anesthesiology Progress Note ---
Date of Service February 04, 2022 Anesthesia Post Procedure Vital Signs Vital Signs: Temp Pulse Resp BP Pulse Ox 02/04/22 14:26 36.9 C 20 02/04/22 10:57 36.9 C 20 02/04/22 18:22 85 100 02/04/22 18:21 75 91 02/04/22 18:17 70 97 02/04/22 18:12 76 103/54 L 99 02/04/22 18:07 79 99 02/04/22 18:02 83 104/58 L 97 02/04/22 16:49 77 113/66 02/04/22 16:48 72 99 02/04/22 16:43 106 H 99 02/04/22 16:38 109 H 100 02/04/22 16:33 106 H 100 02/04/22 16:28 100 H 99 02/04/22 16:23 76 99 02/04/22 16:19 86 126/76 02/04/22 16:18 70 100 02/04/22 16:13 113 H 99 02/04/22 16:08 85 100 02/04/22 16:03 70 138/71 100 02/04/22 16:01 67 138/76 02/04/22 15:59 75 137/79 02/04/22 15:58 68 100 02/04/22 15:57 67 134/77 02/04/22 15:55 72 144/77 H 02/04/22 15:53 68 143/70 H 100 02/04/22 15:52 139 H 140/75 02/04/22 15:49 68 123/79 02/04/22 15:48 66 100 02/04/22 15:47 69 138/79 02/04/22 15:45 36.8 C 71 20 136/78 02/04/22 15:43 62 135/77 100 02/04/22 15:41 68 137/75 02/04/22 15:38 66 100 02/04/22 15:39 89 138/83 02/04/22 15:37 69 135/79 02/04/22 15:35 71 127/71 02/04/22 15:33 62 129/71 100 02/04/22 15:31 71 116/64 02/04/22 15:30 92 H 119/68 02/04/22 15:28 64 100 02/04/22 15:25 77 153/83 H 02/04/22 15:23 68 98 02/04/22 15:20 65 152/79 H 02/04/22 15:18 100 H 99 02/04/22 15:13 77 98 02/04/22 15:08 74 99 02/04/22 13:57 61 159/80 H 02/04/22 12:05 73 99 02/04/22 12:00 72 99 02/04/22 11:55 71 100 02/04/22 11:50 81 99 02/04/22 11:45 72 98 02/04/22 11:40 72 99 02/04/22 11:35 68 99 02/04/22 11:30 65 99 02/04/22 11:25 71 98 02/04/22 11:14 68 98 02/04/22 11:09 68 98 02/04/22 11:04 67 99 02/04/22 10:59 75 97 02/04/22 10:54 83 99 02/04/22 10:49 106 H 100 02/04/22 10:48 101 H 153/84 H 02/04/22 10:44 74 96 Pain Intensity Abdomen: Pain Intensity: 0 Transfer of Care Handoff Completed per policy Notes Mental Status: alert / awake / arousable Nausea / Vomiting: adequately controlled Pain: adequately controlled Airway Patency, RR, SpO2: stable & adequate BP & HR: stable & adequate Hydration State: stable & adequate Neuraxial Anesthesia: was administered and sensory block is resolving Anesthetic Complications: no major complications apparent and Pt Satisfied with anesthetic care
--- NOTE | 2022-02-04 18:25 | Anesthesia Procedure Note ---
Date of Service February 04, 2022 Anesthesia Post Epidural Note Vital Signs Vital Signs: Temp Pulse Resp BP Pulse Ox 36.8 C 85 20 103/54 L 100 02/04/22 15:45 02/04/22 18:22 02/04/22 15:45 02/04/22 18:12 02/04/22 18:22 Pain Intensity Abdomen: Pain Intensity: 0 Notes Mental Status: alert / awake / arousable Nausea / Vomiting: adequately controlled Pain: adequately controlled Airway Patency, RR, SpO2: stable & adequate BP & HR: stable & adequate Hydration State: stable & adequate Neuraxial Anesthesia: was administered and sensory block is resolving Anesthetic Complications: no major complications apparent and Pt Satisfied with anesthetic care Epidural: Removed without complications and With tip intact
[2022-02-04] MEDS ORDERED: AZITHROMYCIN 500 MG in PEDIATRIC DILUENT 0 ML IV ONE (18:32)
[2022-02-04] MEDS ORDERED: HYDROCORTISONE ACETATE 25 MG SUPP PR PRN (18:52)
[2022-02-04] MEDS ORDERED: diphenhydrAMINE Capsule 25 MG CAP PO PRN (18:52)
[2022-02-04] MEDS ORDERED: DIPHTHERIA/TETANUS/PERTUSSIS 0.5mL SYR/VIAL (Age 7+yrs) IM ONE (18:52)
[2022-02-04] MEDS ORDERED: PROMETHAZINE HCL 25 MG in SODIUM CHLORIDE 0.9% 50 ML IV PRN (18:52)
[2022-02-04] MEDS ORDERED: BENZOCAINE 20% AER SPR 82.5 GM CAN EXT PRN (18:52)
[2022-02-04] MEDS ORDERED: MEPERIDINE HCL 50 MG/ML CARP IV PRN (18:52)
[2022-02-04] MEDS ORDERED: METOCLOPRAMIDE HCL 10 MG TABLET PO PRN (18:52)
[2022-02-04] MEDS ORDERED: MAGNESIUM HYDROXIDE SUSP 30 ML UDC PO PRN (18:52)
[2022-02-04] MEDS ORDERED: SENNA 8.6 MG TAB PO PRN (18:52)
[2022-02-04] MEDS ORDERED: OXYTOCIN 20 UNITS in LACTATED RINGER'S 1,000 ML IV SCH (18:52)
[2022-02-04] MEDS ORDERED: oxyCODONE/ACETAMINOPHEN 5mg/325mg TAB PO PRN (18:52)
[2022-02-04] MEDS ORDERED: PROMETHAZINE HCL 6.25 MG in SODIUM CHLORIDE 0.9% 50 ML IV PRN (20:12)
[2022-02-04] MEDS ORDERED: MoRPHine SULFATE 2 MG/ML CARP IV PRN (20:12)
[2022-02-04] MEDS ORDERED: MEPERIDINE HCL 25 MG/ML CARP/VIAL IV PRN (20:12)
[2022-02-04] MEDS ORDERED: NALOXONE HCL 0.08 MG in SYRINGE 1.8 ML IV PRN (20:12)
[2022-02-04] MEDS ORDERED: LACTATED RINGER'S 500 ML IV PRN (20:12)
[2022-02-04] MEDS ORDERED: HYDROmorphone INJ 0.5 MG/0.5 ML SYR IV PRN (20:12)
[2022-02-04] MEDS ORDERED: MoRPHine SULFATE PF 1 MG/ML 10 ML AMP/VIAL INT SPINAL ONE (20:12)
[2022-02-04] MEDS ORDERED: SODIUM CHLORIDE 0.9% 1000ML 1,000 ML IV SCH (20:15)
[2022-02-04] MEDS ORDERED: DC INTRASPINAL MORPHINE SCH (20:15)
[2022-02-04] MEDS ORDERED: NO NARCOTICS OR SEDATIVES SCH (20:15)
[2022-02-04] MEDS ORDERED: AZITHROMYCIN 500 MG in DEXTROSE 5% 250 ML IV ONE (21:00)
[2022-02-04] MEDS: DOCUSATE SODIUM 100 MG CAP PO SCH (23:29)
[2022-02-04] MEDS: SIMETHICONE 80 MG CHEW PO SCH (23:29)
--- NOTE | 2022-02-04 23:40 | Operative Report (OR) ---
DATE OF SURGERY: 02/04/2022. PREOPERATIVE DIAGNOSIS: Nonreassuring heart tones, delivery at 37.2 weeks. POSTOPERATIVE DIAGNOSIS: Nonreassuring heart tones, delivery at 37.2 weeks. PROCEDURE: Primary section, low segment transverse. SURGEON: Doron Farley MD NURSE HEALTHCARE MANAGER: Kamryn Jennings MD ANESTHESIA: Epidural with Duramorph. FINDINGS: Live female, Apgars 8 and 9, weight 6 pounds 2 ounces. ESTIMATED BLOOD LOSS: 500 mL. FLUIDS: 700 mL. URINE OUTPUT: 100 mL. COMPLICATIONS: None. CLINICAL HISTORY: The patient is a 31-year-old female, para 0-0-0-0, at 37 weeks and 2 days, who pre sents to labor and delivery this morning with severe nausea and vomiting and dehydration. She is a p atient of [facility], who presented due to the weather. She was evaluated this morning f or rule out rupture of membranes. She was not ruptured, confirmed by AmniSure, and then later on dur ing IV hydration, she spontaneously ruptured with clear fluid. She eventually progressed to having s ome contractions and had an epidural and had persistent late decelerations with tachycardia aft er an epidural was placed. Because of the patient being remote from term, decision was made for cesa rean section. DESCRIPTION OF PROCEDURE: Under satisfactory epidural anesthesia, the patient was prepped and draped in the usual sterile fashion. A low Pfannenstiel incision was made carrying the incision down in corbett ccessive layers of the abdomen without difficulty. Upon entering into the abdominal cavity, the tj ent was found to be dextrorotated. The head was down. A low segment transverse incision over the lo wer uterine segment was made. The incision was nicked. The amniotic sac was noted to be clear. The incision was widened in the AP diameter with blunt dissection. The infant was then delivered with t he aid of fundal pressure, delivering a live female, Apgars were 8 and 9 after delayed cord clamping, weight 6 pounds 2 ounces. Cord blood was obtained. Placenta was delivered spontaneously and intact. No active bleeding was noted. The uterus was exteriorized. Ring forceps were then placed o n both angles in the inferior margin. The uterus was closed in double layer closure with 0 Vicryl corbett ture in a continuous interlocking fashion. A second imbricating layer closed the uterus. No active bleeding. Tubes and ovaries bilaterally were noted to be within normal limits. The contents of the pelvic cavity were then irrigated to clear. No active bleeding was noted. The initial sponge, needl e, and instrument counts were found to be correct. The fascia was then reapproximated from both ends using 0 Vicryl suture in a continuous fashion. Subcuticular layer was closed with 2-0 plain suture followed by jeffrey for skin. Telfa and ABD dressing were applied. Clear urine was noted from the F oley. Estimated blood loss 500 mL. Total fluids 700 mL. Urine output 100 mL. The final sponge, ne edle and instrument counts were found to be correct. The patient was taken to recovery room in stabl e condition. Please note the attestation, Dr. Jennings was necessary for operative assistance due to re traction, assisting with fundal pressure, and closure of the uterus and abdomen. Job ID: [id number]
[2022-02-04] MEDS: ACETAMINOPHEN 1,000 MG/100 ML VIAL IV PRN (23:48)
[2022-02-05 05:13] LABS: HBSAG NON-REACTIVE (NON-REACTIVE); Hepatitis A Antibody IgM NON-REACTIVE (NON-REACTIVE); Hepatitis B Core Antibody IgM NON-REACTIVE (NON-REACTIVE)
[2022-02-05] MEDS: LACTATED RINGER'S 1,000 ML IV SCH (06:26)
[2022-02-05 07:16] LABS: Basophils # (auto) 0.02 K/uL (0-0.2); Basophils % (auto) 0.2 %; Eosinophils # (auto) 0.09 K/uL (0-0.50); Eosinophils % (auto) 0.7 %; Hematocrit (blood only) 31.2 % (34.1-44.9); Immature Granulocytes # (auto) 0.12 K/uL (0.00-0.02); Lymphocytes # (auto) 2.03 K/uL (1.2-3.4); Lymphocytes % (auto) 16.8 %; Mean Corpuscular Hemoglobin 31.4 pg (25.0-34.0); Mean Corpuscular Hgb Conc 35.3 g/dL (32.0-36.0); Mean Corpuscular Volume 89.1 fL (80.0-100.0); Mean Platelet Volume 9.6 fL (9.4-12.3); Monocytes # (auto) 0.98 K/uL (0.24-0.82); Monocytes % (auto) 8.1 %; Neutrophils # (auto) 8.87 K/uL (1.4-6.5); Neutrophils % (auto) 73.2 %; Platelet Count 200 K/uL (130-400); RDW Coefficient of Variation 11.9 % (11.5-14.5); RDW Standard Deviation 37.8 fL (36.4-46.3); White Blood Count 12.11 K/ul (4.8-10.8)
[2022-02-05] MEDS: DOCUSATE SODIUM 100 MG CAP PO SCH ×2 (07:40→20:02)
[2022-02-05] MEDS: PRENATAL VITAMIN 1 TAB PO SCH (07:40)
[2022-02-05] MEDS: FERROUS SULFATE 325 MG TAB PO SCH (07:40)
[2022-02-05] MEDS: SIMETHICONE 80 MG CHEW PO SCH ×4 (07:40→20:02)
[2022-02-05] MEDS: ACETAMINOPHEN 1,000 MG/100 ML VIAL IV PRN (07:41)
[2022-02-05] MEDS ORDERED: PRENATAL VITAMIN 1 TAB PO SCH (09:00)
--- NOTE | 2022-02-05 09:21 | Obstetrical Progress Note ---
Date of Service February 05, 2022 Assessment & Plan Admission and Anticipated Discharge Date Admission Date: February 04, 2022 Subjective Patient is seen and examined Feels well, no complaints Pain is under control with meds No CP/ SOB/ Dizziness/ N&V/ VB/ Leg pain Not OOB yet Tolerating regular diet Flatus + Breast feeding Vital Signs Temp Resp BP Pulse Ox O2 Del Method 02/05/22 06:00 20 97 02/05/22 05:00 20 97 02/05/22 04:00 20 97 02/05/22 03:17 20 96 02/05/22 03:17 36.6 C 20 102/56 L 96 Room Air 02/05/22 01:00 18 98 02/05/22 00:22 36.7 C 18 118/68 97 Room Air 02/05/22 00:00 20 97 02/04/22 23:00 18 97 02/04/22 22:00 20 97 Lab Results 02/04/22 02/04/22 02/04/22 Range/Units 08:38 08:54 08:54 WBC 11.29 H (4.8-10.8) K/ul RBC 4.03 (3.93-5.22) M/uL Hgb 12.5 (12.0-16.0) g/dl Hct 36.7 (34.1-44.9) % MCV 91.1 (80.0-100.0) fL MCH 31.0 (25.0-34.0) pg MCHC 34.1 (32.0-36.0) g/dL RDW Std Deviation 38.4 (36.4-46.3) fL RDW Coeff of Alonso 11.5 (11.5-14.5) % Plt Count 244 (130-400) K/uL MPV 9.9 (9.4-12.3) fL Immature Gran % (Auto) 0.7 % Neut % (Auto) 83.7 % Lymph % (Auto) 12.0 % Roberts % (Auto) 3.5 % Eos % (Auto) 0.0 % Baso % (Auto) 0.1 % Neut # (Auto) 9.44 H (1.4-6.5) K/uL Lymph # (Auto) 1.36 (1.2-3.4) K/uL Roberts # (Auto) 0.40 (0.24-0.82) K/uL Eos # (Auto) 0.00 (0-0.50) K/uL Baso # (Auto) 0.01 (0-0.2) K/uL Immature Gran # (Auto) 0.08 H (0.00-0.02) K/uL Sodium 135 L (136-145) mmol/L Potassium 4.0 (3.5-5.1) mmol/L Chloride 104 (98-107) mmol/L Carbon Dioxide 20 L (21-32) mmol/L Anion Gap 11 (3-11) BUN 12 (6-23) mg/dl Creatinine 0.61 (0.6-1.2) mg/dl Est Cr Clr Drug Dosing 140.7 ml/min Est GFR ( Amer) 139.0 ml/min Est GFR (Non-Af Amer) 120.0 ml/min BUN/Creatinine Ratio 19.7 (10-20) Glucose 78 (70-99(Fasting)) mg/dl Calcium 8.3 L (8.5-10.1) mg/dl Total Bilirubin 0.9 (0.2-1.0) mg/dl AST 10 L (13-39) U/L ALT 6 L (7-52) U/L Alkaline Phosphatase 108 H (34-104) U/L Total Protein 6.5 (6.0-8.3) gm/dl Albumin 3.6 (3.4-5.0) gm/dl Globulin 2.9 (2.5-4.0) gm/dl Albumin/Globulin Ratio 1.2 (0.9-2) Triglycerides (0-150) mg/dl Amylase 98 (25-115) U/L Lipase 46 (11-82) U/L Urine Color Urine Appearance (Clear) Urine pH (4.5-7.5) Ur Specific [place] (1.000-1.030) Urine Protein (Negative) Urine Glucose (UA) (Negative) Urine Ketones (Negative) Urine Blood (Negative) Urine Nitrite (Negative) Urine Bilirubin (Negative) Urine Urobilinogen (Negative) Ur Leukocyte Esterase (Negative) Urine WBC (Auto) (0-5) /hpf Urine RBC (Auto) (0-4) /hpf U Hyaline Cast (Auto) (0-5) /lpf U Epithel Cells (Auto) (0-5) /lpf Urine Bacteria (Auto) (Negative) Amniotic Protein NEG Hepatitis A IgM Ab (NON-REACTIVE) Hep Bs Antigen (NON-REACTIVE) Hep Bs Ag Confirmation Hep B Core IgM Ab (NON-REACTIVE) Hepatitis C Ab (EIA) (NON-REACTIVE) Hep C Ab Signal/Cutoff (<1.00) 02/04/22 02/04/22 02/04/22 Range/Units 09:35 11:19 11:19 WBC (4.8-10.8) K/ul RBC (3.93-5.22) M/uL Hgb (12.0-16.0) g/dl Hct (34.1-44.9) % MCV (80.0-100.0) fL MCH (25.0-34.0) pg MCHC (32.0-36.0) g/dL RDW Std Deviation (36.4-46.3) fL RDW Coeff of Alonso (11.5-14.5) % Plt Count (130-400) K/uL MPV (9.4-12.3) fL Immature Gran % (Auto) % Neut % (Auto) % Lymph % (Auto) % Roberts % (Auto) % Eos % (Auto) % Baso % (Auto) % Neut # (Auto) (1.4-6.5) K/uL Lymph # (Auto) (1.2-3.4) K/uL Roberts # (Auto) (0.24-0.82) K/uL Eos # (Auto) (0-0.50) K/uL Baso # (Auto) (0-0.2) K/uL Immature Gran # (Auto) (0.00-0.02) K/uL Sodium (136-145) mmol/L Potassium (3.5-5.1) mmol/L Chloride (98-107) mmol/L Carbon Dioxide (21-32) mmol/L Anion Gap (3-11) BUN (6-23) mg/dl Creatinine (0.6-1.2) mg/dl Est Cr Clr Drug Dosing ml/min Est GFR ( Amer) ml/min Est GFR (Non-Af Amer) ml/min BUN/Creatinine Ratio (10-20) Glucose (70-99(Fasting)) mg/dl Calcium (8.5-10.1) mg/dl Total Bilirubin (0.2-1.0) mg/dl AST (13-39) U/L ALT (7-52) U/L Alkaline Phosphatase (34-104) U/L Total Protein (6.0-8.3) gm/dl Albumin (3.4-5.0) gm/dl Globulin (2.5-4.0) gm/dl Albumin/Globulin Ratio (0.9-2) Triglycerides 243 H (0-150) mg/dl Amylase (25-115) U/L Lipase (11-82) U/L Urine Color Yellow Urine Appearance Clear (Clear) Urine pH 5.5 (4.5-7.5) Ur Specific [place] 1.028 (1.000-1.030) Urine Protein 1+ H (Negative) Urine Glucose (UA) Negative (Negative) Urine Ketones 4+ H (Negative) Urine Blood 2+ H (Negative) Urine Nitrite Negative (Negative) Urine Bilirubin Negative (Negative) Urine Urobilinogen Negative (Negative) Ur Leukocyte Esterase Negative (Negative) Urine WBC (Auto) 5-10 H (0-5) /hpf Urine RBC (Auto) 5-10 H (0-4) /hpf U Hyaline Cast (Auto) 1-5 (0-5) /lpf U Epithel Cells (Auto) >30 H (0-5) /lpf Urine Bacteria (Auto) 1+ H (Negative) Amniotic Protein Hepatitis A IgM Ab NON-REACTIVE (NON-REACTIVE) Hep Bs Antigen NON-REACTIVE (NON-REACTIVE) Hep Bs Ag Confirmation TNP Hep B Core IgM Ab NON-REACTIVE (NON-REACTIVE) Hepatitis C Ab (EIA) NON-REACTIVE (NON-REACTIVE) Hep C Ab Signal/Cutoff 0.03 (<1.00) 02/04/22 02/05/22 Range/Units 12:21 06:58 WBC 16.51 H 12.11 H (4.8-10.8) K/ul RBC 4.08 3.50 L (3.93-5.22) M/uL Hgb 12.7 11.0 L (12.0-16.0) g/dl Hct 37.1 31.2 L (34.1-44.9) % MCV 90.9 89.1 (80.0-100.0) fL MCH 31.1 31.4 (25.0-34.0) pg MCHC 34.2 35.3 (32.0-36.0) g/dL RDW Std Deviation 38.5 37.8 (36.4-46.3) fL RDW Coeff of Alonso 11.7 11.9 (11.5-14.5) % Plt Count 234 200 (130-400) K/uL MPV 9.6 9.6 (9.4-12.3) fL Immature Gran % (Auto) 1.0 % Neut % (Auto) 73.2 % Lymph % (Auto) 16.8 % Roberts % (Auto) 8.1 % Eos % (Auto) 0.7 % Baso % (Auto) 0.2 % Neut # (Auto) 8.87 H (1.4-6.5) K/uL Lymph # (Auto) 2.03 (1.2-3.4) K/uL Roberts # (Auto) 0.98 H (0.24-0.82) K/uL Eos # (Auto) 0.09 (0-0.50) K/uL Baso # (Auto) 0.02 (0-0.2) K/uL Immature Gran # (Auto) 0.12 H (0.00-0.02) K/uL Sodium (136-145) mmol/L Potassium (3.5-5.1) mmol/L Chloride (98-107) mmol/L Carbon Dioxide (21-32) mmol/L Anion Gap (3-11) BUN (6-23) mg/dl Creatinine (0.6-1.2) mg/dl Est Cr Clr Drug Dosing ml/min Est GFR ( Amer) ml/min Est GFR (Non-Af Amer) ml/min BUN/Creatinine Ratio (10-20) Glucose (70-99(Fasting)) mg/dl Calcium (8.5-10.1) mg/dl Total Bilirubin (0.2-1.0) mg/dl AST (13-39) U/L ALT (7-52) U/L Alkaline Phosphatase (34-104) U/L Total Protein (6.0-8.3) gm/dl Albumin (3.4-5.0) gm/dl Globulin (2.5-4.0) gm/dl Albumin/Globulin Ratio (0.9-2) Triglycerides (0-150) mg/dl Amylase (25-115) U/L Lipase (11-82) U/L Urine Color Urine Appearance (Clear) Urine pH (4.5-7.5) Ur Specific [place] (1.000-1.030) Urine Protein (Negative) Urine Glucose (UA) (Negative) Urine Ketones (Negative) Urine Blood (Negative) Urine Nitrite (Negative) Urine Bilirubin (Negative) Urine Urobilinogen (Negative) Ur Leukocyte Esterase (Negative) Urine WBC (Auto) (0-5) /hpf Urine RBC (Auto) (0-4) /hpf U Hyaline Cast (Auto) (0-5) /lpf U Epithel Cells (Auto) (0-5) /lpf Urine Bacteria (Auto) (Negative) Amniotic Protein Hepatitis A IgM Ab (NON-REACTIVE) Hep Bs Antigen (NON-REACTIVE) Hep Bs Ag Confirmation Hep B Core IgM Ab (NON-REACTIVE) Hepatitis C Ab (EIA) (NON-REACTIVE) Hep C Ab Signal/Cutoff (<1.00) PE: General: Alert, orientedx3, NAD CVS: S1S2 RRR Lungs: CTAB Abd: soft, NT, ND, BS+, Incision/ dressing C/D/I, fundus firm below U No VB Ext: NT, no edema, SCD's on AP: 31 yo female s/p Primary Csection , pod#1 VSS Afebrile doing well Continue to routine postop care Encourage PO intake, may ambulate D/C bravo Results & Data ([facility]) Vital Signs (Past 12 Hours) Vital Signs Temp Resp BP Pulse Ox O2 Del Method 02/05/22 06:00 20 97 02/05/22 05:00 20 97 02/05/22 04:00 20 97 02/05/22 03:17 20 96 02/05/22 03:17 36.6 C 20 102/56 L 96 Room Air 02/05/22 01:00 18 98 02/05/22 00:22 36.7 C 18 118/68 97 Room Air 02/05/22 00:00 20 97 02/04/22 23:00 18 97 02/04/22 22:00 20 97
--- NOTE | 2022-02-05 12:47 | Hospitalist Progress Note ---
Date of Service February 05, 2022 Assessment & Plan (1) Nausea and vomiting during : Plan: - resolved s/p delivery 02/04/2022 - continue supportive care as needed (2) Acute dehydration: Plan: - s/p IVF (3) COVID-19: Plan: - had reproted diagnosis 1 month prior to admission - positive again 02/03/2022 - unclear if contributing to current symptoms or if this represents reinfection - not hypoxic and afebrile - no indication for treatment for COVID19 at this time Plan Thank you for the consultation, we will sign off. Please call back if further questions or recommendations needed. Poncho Blake MD [facility] Medicine Admission and Anticipated Discharge Date Admission Date: February 04, 2022 Subjective Chart reviewed, patient delivered by 02/04/2022. No complaints of n/v at this time. No other complaints noted. Review of Systems Review of Systems: All systems reviewed & are unremarkable except as noted in Subjective Physical Exam Physical Exam: GENERAL: Patient is in no acute distress Exam deferred as patient is post delivery and feeling well. Results & Data Results & Data ([facility]) Vital Signs (Past 12 Hours) Vital Signs Temp Resp BP Pulse Ox O2 Del Method 02/05/22 06:00 20 97 02/05/22 05:00 20 97 02/05/22 04:00 20 97 02/05/22 03:17 20 96 02/05/22 03:17 36.6 C 20 102/56 L 96 Room Air 02/05/22 01:00 18 98 Diagnostic Findings Laboratory Results WBC 12.11 K/ul (4.8-10.8) H 02/05/22 06:58 RBC 3.50 M/uL (3.93-5.22) L 02/05/22 06:58 Hgb 11.0 g/dl (12.0-16.0) L 02/05/22 06:58 Hct 31.2 % (34.1-44.9) L 02/05/22 06:58 MCV 89.1 fL (80.0-100.0) 02/05/22 06:58 MCH 31.4 pg (25.0-34.0) 02/05/22 06:58 MCHC 35.3 g/dL (32.0-36.0) 02/05/22 06:58 RDW Std Deviation 37.8 fL (36.4-46.3) 02/05/22 06:58 RDW Coeff of Alonso 11.9 % (11.5-14.5) 02/05/22 06:58 Plt Count 200 K/uL (130-400) 02/05/22 06:58 MPV 9.6 fL (9.4-12.3) 02/05/22 06:58 Immature Gran % (Auto) 1.0 % 02/05/22 06:58 Neut % (Auto) 73.2 % 02/05/22 06:58 Lymph % (Auto) 16.8 % 02/05/22 06:58 [place] % (Auto) 8.1 % 02/05/22 06:58 Eos % (Auto) 0.7 % 02/05/22 06:58 Baso % (Auto) 0.2 % 02/05/22 06:58 Neut # (Auto) 8.87 K/uL (1.4-6.5) H 02/05/22 06:58 Lymph # (Auto) 2.03 K/uL (1.2-3.4) 02/05/22 06:58 [place] # (Auto) 0.98 K/uL (0.24-0.82) H 02/05/22 06:58 Eos # (Auto) 0.09 K/uL (0-0.50) 02/05/22 06:58 Baso # (Auto) 0.02 K/uL (0-0.2) 02/05/22 06:58 Immature Gran # (Auto) 0.12 K/uL (0.00-0.02) H 02/05/22 06:58 Sodium 135 mmol/L (136-145) L 02/04/22 08:54 Potassium 4.0 mmol/L (3.5-5.1) 02/04/22 08:54 Chloride 104 mmol/L (98-107) 02/04/22 08:54 Carbon Dioxide 20 mmol/L (21-32) L 02/04/22 08:54 Anion Gap 11 (3-11) 02/04/22 08:54 BUN 12 mg/dl (6-23) 02/04/22 08:54 Creatinine 0.61 mg/dl (0.6-1.2) 02/04/22 08:54 Est Cr Clr Drug Dosing 140.7 ml/min 02/04/22 08:54 Est GFR ( Amer) 139.0 ml/min 02/04/22 08:54 Est GFR (Non-Af Amer) 120.0 ml/min 02/04/22 08:54 BUN/Creatinine Ratio 19.7 (10-20) 02/04/22 08:54 Glucose 78 mg/dl (70-99(Fasting)) 02/04/22 08:54 Calcium 8.3 mg/dl (8.5-10.1) L 02/04/22 08:54 Total Bilirubin 0.9 mg/dl (0.2-1.0) 02/04/22 08:54 AST 10 U/L (13-39) L 02/04/22 08:54 ALT 6 U/L (7-52) L 02/04/22 08:54 Alkaline Phosphatase 108 U/L (34-104) H 02/04/22 08:54 Total Protein 6.5 gm/dl (6.0-8.3) 02/04/22 08:54 Albumin 3.6 gm/dl (3.4-5.0) 02/04/22 08:54 Globulin 2.9 gm/dl (2.5-4.0) 02/04/22 08:54 Albumin/Globulin Ratio 1.2 (0.9-2) 02/04/22 08:54 Triglycerides 243 mg/dl (0-150) H 02/04/22 11:19 Amylase 98 U/L (25-115) 02/04/22 08:54 Lipase 46 U/L (11-82) 02/04/22 08:54 Urine Color Yellow 02/04/22 09:35 Urine Appearance Clear (Clear) 02/04/22 09:35 Urine pH 5.5 (4.5-7.5) 02/04/22 09:35 Ur Specific [place] 1.028 (1.000-1.030) 02/04/22 09:35 Urine Protein 1+ (Negative) H 02/04/22 09:35 Urine Glucose (UA) Negative (Negative) 02/04/22 09:35 Urine Ketones 4+ (Negative) H 02/04/22 09:35 Urine Blood 2+ (Negative) H 02/04/22 09:35 Urine Nitrite Negative (Negative) 02/04/22 09:35 Urine Bilirubin Negative (Negative) 02/04/22 09:35 Urine Urobilinogen Negative (Negative) 02/04/22 09:35 Ur Leukocyte Esterase Negative (Negative) 02/04/22 09:35 Urine WBC (Auto) 5-10 /hpf (0-5) H 02/04/22 09:35 Urine RBC (Auto) 5-10 /hpf (0-4) H 02/04/22 09:35 U Hyaline Cast (Auto) 1-5 /lpf (0-5) 02/04/22 09:35 U Epithel Cells (Auto) >30 /lpf (0-5) H 02/04/22 09:35 Urine Bacteria (Auto) 1+ (Negative) H 02/04/22 09:35 Amniotic Protein NEG 02/04/22 08:38 Hepatitis A IgM Ab NON-REACTIVE (NON-REACTIVE) 02/04/22 11:19 Hep Bs Antigen NON-REACTIVE (NON-REACTIVE) 02/04/22 11:19 Hep Bs Ag Confirmation TNP 02/04/22 11:19 Hep B Core IgM Ab NON-REACTIVE (NON-REACTIVE) 02/04/22 11:19 Hepatitis C Ab (EIA) NON-REACTIVE (NON-REACTIVE) 02/04/22 11:19 Hep C Ab Signal/Cutoff 0.03 (<1.00) 02/04/22 11:19 Medications Administered Current Inpatient Medications Acetaminophen (Acetaminophen 325 Mg Tab) 325 mg PO Q4H PRN PRN Reason: Pain Stop: 03/06/22 18:13 Benzocaine (Benzocaine 20% Aer Spr 82.5 Gm Can) 1 appln EXT UD PRN PRN Reason: use on skin as needed Stop: 03/06/22 18:51 Bisacodyl (Bisacodyl 5 Mg Tabec) 5 mg PO 2000 RAHEL Stop: 02/05/22 20:01 Bisacodyl (Bisacodyl 10 Mg Supp) 10 mg OH PRN PRN PRN Reason: Constipation Stop: 03/08/22 18:10 Cetirizine HCl (Cetirizine Hcl 10 Mg Tablet) 10 mg PO QAM RAHEL Stop: 03/07/22 09:29 Diphenhydramine HCl (Diphenhydramine Capsule 25 Mg Cap) 25 mg PO QID PRN PRN Reason: Itching Stop: 03/06/22 18:51 Diphenhydramine HCl (Diphenhydramine 50 Mg/Ml Vial) 25 mg IV QID PRN PRN Reason: Itching Stop: 03/06/22 18:51 Diphenhydramine HCl (Diphenhydramine 50 Mg/Ml Vial) 25 mg IV Q6H PRN PRN Reason: Itching Stop: 02/05/22 14:12 Last Admin: 02/05/22 00:15 Dose: 25 mg Docusate Sodium (Docusate Sodium 100 Mg Cap) 100 mg PO DAILY@, [facility] Stop: 03/06/22 20:59 Last Admin: 02/05/22 07:40 Dose: 100 mg Ephedrine Sulfate (Ephedrine Sulfate 50 Mg/Ml Amp) 10 mg IV Q5M PRN PRN Reason: Hypotension Stop: 02/05/22 14:12 Ferrous Sulfate (Ferrous Sulfate 325 Mg Tab) 325 mg PO DAILY@ [facility] Stop: 03/07/22 07:59 Last Admin: 02/05/22 07:40 Dose: 325 mg Hydrocortisone (Hydrocortisone Acetate 25 Mg Supp) 25 mg OH BID PRN PRN Reason: Hemorrhoids Stop: 03/06/22 18:51 Hydromorphone HCl (Hydromorphone Inj 0.5 Mg/0.5 Ml Syr) 0.25 mg IV Q4H PRN PRN Reason: Breakthrough Surgical Pain Stop: 02/05/22 14:13 Promethazine HCl 25 mg/ Sodium (Chloride) 51 mls @ 204 mls/hr IV Q6H PRN PRN Reason: Nausea And Vomiting Stop: 03/06/22 07:52 Last Admin: 02/04/22 09:36 Dose: 204 mls/hr Lactated Ringer's (Lr) 1,000 mls @ 125 mls/hr IV .Q8H PRN; Protocol PRN Reason: L&D Protocol Stop: 02/06/22 12:08 Last Infusion: 02/04/22 15:35 Dose: 125 mls/hr Oxytocin (Pitocin) 30 units in 500 mls @ 333.333 mls/hr IV .Q1H30M PRN; Protocol PRN Reason: Bleeding Control Stop: 03/06/22 12:08 Lactated Ringer's (Lr) 1,000 mls @ 125 mls/hr IV .Q8H RAHEL Stop: 03/06/22 18:51 Last Admin: 02/05/22 06:26 Dose: 125 mls/hr Oxytocin 20 units/ Lactated (Ringer's) 1,002 mls @ 125 mls/hr IV .Q8H1M RAHEL Stop: 03/06/22 18:51 Last Admin: 02/04/22 20:37 Dose: 125 mls/hr Sodium Chloride (Nss 1000ml) 1,000 mls @ 15 mls/hr IV .Q24H RAHEL Stop: 02/05/22 14:12 Promethazine HCl 6.25 mg/ (Sodium Chloride) 50.25 mls @ 204 mls/hr IV Q6H PRN PRN Reason: Nausea And Vomiting Stop: 02/05/22 14:13 Naloxone HCl 1 mg/ Sodium (Chloride) 1,002.5 mls @ 50 mls/hr IV .Q20H3M PRN PRN Reason: Nausea/Vomiting or Itching Stop: 02/05/22 14:12 Lactated Ringer's (Lr) 500 mls @ 999 mls/hr IV .Q31M PRN PRN Reason: Hypotension Stop: 02/05/22 14:12 Naloxone HCl 0.08 mg/ Syringe 2 mls @ 1 mls/min IV Q30M PRN; Protocol PRN Reason: Urinary Retention Stop: 02/05/22 14:12 Acetaminophen (Ofirmev) 1,000 mg in 100 mls @ 400 mls/hr IV Q8H PRN PRN Reason: Pain Stop: 02/07/22 20:12 Last Admin: 02/05/22 07:41 Dose: 400 mls/hr Lidocaine HCl (Lidocaine 1% Local 20 Ml Vial) 20 ml INFIL ONCE PRN PRN Reason: Perineal/vaginal Repair Stop: 03/06/22 12:08 Magnesium Hydroxide (Magnesium Hydroxide Susp 30 Ml Udc) 30 ml PO HS PRN PRN Reason: Constipation Stop: 03/06/22 18:51 Meperidine HCl (Meperidine Hcl 50 Mg/Ml Carp) 50 - 75 mg IV Q4H PRN PRN Reason: Pain Stop: 02/18/22 18:51 Meperidine HCl (Meperidine Hcl 25 Mg/Ml Carp/Vial) 25 mg IV Q15M PRN PRN Reason: Surgi Pain/Chills/Rigors Stop: 02/05/22 14:13 Metoclopramide HCl (Metoclopramide Hcl Inj 5 Mg/Ml 2 Ml Vial) 10 mg IV Q6H PRN PRN Reason: Nausea Stop: 03/06/22 07:53 Last Admin: 02/04/22 13:46 Dose: 10 mg Metoclopramide HCl (Metoclopramide Hcl 10 Mg Tablet) 10 mg PO Q6H PRN PRN Reason: nausea and vomiting Stop: 03/06/22 18:51 Miscellaneous Information (Dc Intraspinal Morphine) 1 each N/A UD RAHEL Stop: 02/05/22 14:12 Misoprostol (Misoprostol 50 Mcg Tab) 50 mcg PO Q4 RAHEL Stop: 03/06/22 15:59 Morphine Sulfate (Morphine Sulfate 2 Mg/Ml Carp) 2 mg IV Q2H PRN PRN Reason: Breakthrough Surgical Pain Stop: 02/05/22 14:13 Nalbuphine HCl (Nalbuphine Hcl Inj 10 Mg/Ml Amp) 5 mg IV Q10M PRN PRN Reason: Itching Stop: 02/05/22 14:12 Last Admin: 02/05/22 06:23 Dose: 5 mg Naloxone HCl (Naloxone Hcl 0.4 Mg/1 Ml Vial/Carp) 0.1 mg IV UD PRN PRN Reason: Respiratory Depression Stop: 02/05/22 14:12 Ondansetron HCl (Ondansetron Inj 2 Mg/Ml 2 Ml Vial) 4 mg IV Q4H PRN PRN Reason: Nausea And Vomiting Stop: 03/06/22 07:52 Last Admin: 02/04/22 15:56 Dose: 4 mg Ondansetron HCl (Ondansetron 4 Mg Od Tab) 4 mg PO Q4H PRN PRN Reason: Nausea And Vomiting Stop: 03/06/22 07:52 Ondansetron HCl (Ondansetron Inj 2 Mg/Ml 2 Ml Vial) 4 mg IV Q4H PRN PRN Reason: Nausea And Vomiting Stop: 03/06/22 18:51 Ondansetron HCl (Ondansetron Inj 2 Mg/Ml 2 Ml Vial) 4 mg IV Q6H PRN PRN Reason: Nausea And Vomiting Stop: 02/05/22 14:13 Oxycodone/Acetaminophen (Oxycodone/Acetaminophen 5mg/325mg Tab) 1 - 2 tab PO Q4H PRN PRN Reason: Pain Stop: 02/18/22 18:51 Prenat Multivit/[employer]/Iron/Folic Ac ( Vitamin 1 Tab) 1 tab PO DAILY@08 [facility] Stop: 03/07/22 07:59 Last Admin: 02/05/22 07:40 Dose: 1 tab Sennosides (Senna 8.6 Mg Tab) 17.2 mg PO HS PRN PRN Reason: Constipation Stop: 03/06/22 18:51 Simethicone (Simethicone 80 Mg Chew) 80 mg PO DAILY@08,13,17,21 [facility] Stop: 03/06/22 20:59 Last Admin: 02/05/22 07:40 Dose: 80 mg
[2022-02-05] MEDS: miSOPROStoL 50 MCG TAB PO SCH ×2 (12:59→13:00)
[2022-02-05] MEDS ORDERED: Nursing to Pharmacy Communication SCH (13:15)
[2022-02-05] MEDS: CETIRIZINE HCL 10 MG TABLET PO SCH (15:14)
[2022-02-05] MEDS ORDERED: bisacodyL 5 MG TABEC PO SCH (20:00)
[2022-02-05] MEDS: ACETAMINOPHEN 325 MG TAB PO PRN (20:02)
[2022-02-06] MEDS: ONDANSETRON 4 MG OD TAB PO PRN (04:23)
[2022-02-06 06:33] LABS: Hematocrit (blood only) 32.5 % (34.1-44.9); Hemoglobin 11.4 g/dl (12.0-16.0)
[2022-02-06] MEDS: ACETAMINOPHEN 325 MG TAB PO PRN ×2 (06:36→22:25)
--- NOTE | 2022-02-06 08:45 | Obstetrical Progress Note ---
Date of Service February 06, 2022 Assessment & Plan Admission and Anticipated Discharge Date Admission Date: February 04, 2022 Subjective Patient is seen and examined. She feels nauseous and complains of belching since last night. No vomiting, ate 3 meals yesterday and kept those down. Pain is under control with oral meds, Percoset and Tylenol. Ambulating without dizziness Voiding without difficulty Tolerating regular diet with out N&V Flatus + BM neg Bleeding is minimal No fever/ chills/ CP/ SOB/ N&V/ Leg pain Breast feeding without problems Vital Signs Temp Pulse Pulse Resp BP Pulse Ox O2 Del Method 02/06/22 04:15 36.7 C 02/06/22 00:25 36.8 C 82 16 104/65 96 Room Air 02/05/22 20:00 36.9 C 86 18 121/83 98 Room Air 02/05/22 15:28 36.8 C 82 20 106/78 97 Room Air 02/05/22 13:40 36.5 C 72 18 108/73 99 Room Air 02/05/22 12:00 18 99 02/05/22 11:00 18 99 02/05/22 10:00 18 99 02/05/22 09:00 18 99 Intake and Output 02/05/22 02/06/22 02/06/22 22:59 06:59 14:59 Output Total 800 / 800 Balance -800 / -800 Output: Urine 800 / 800 Lab Results 02/04/22 02/04/22 02/04/22 Range/Units 08:38 08:54 08:54 WBC 11.29 H (4.8-10.8) K/ul RBC 4.03 (3.93-5.22) M/uL Hgb 12.5 (12.0-16.0) g/dl Hct 36.7 (34.1-44.9) % MCV 91.1 (80.0-100.0) fL MCH 31.0 (25.0-34.0) pg MCHC 34.1 (32.0-36.0) g/dL RDW Std Deviation 38.4 (36.4-46.3) fL RDW Coeff of Alonso 11.5 (11.5-14.5) % Plt Count 244 (130-400) K/uL MPV 9.9 (9.4-12.3) fL Immature Gran % (Auto) 0.7 % Neut % (Auto) 83.7 % Lymph % (Auto) 12.0 % [place] % (Auto) 3.5 % Eos % (Auto) 0.0 % Baso % (Auto) 0.1 % Neut # (Auto) 9.44 H (1.4-6.5) K/uL Lymph # (Auto) 1.36 (1.2-3.4) K/uL [place] # (Auto) 0.40 (0.24-0.82) K/uL Eos # (Auto) 0.00 (0-0.50) K/uL Baso # (Auto) 0.01 (0-0.2) K/uL Immature Gran # (Auto) 0.08 H (0.00-0.02) K/uL Sodium 135 L (136-145) mmol/L Potassium 4.0 (3.5-5.1) mmol/L Chloride 104 (98-107) mmol/L Carbon Dioxide 20 L (21-32) mmol/L Anion Gap 11 (3-11) BUN 12 (6-23) mg/dl Creatinine 0.61 (0.6-1.2) mg/dl Est Cr Clr Drug Dosing 140.7 ml/min Est GFR ( Amer) 139.0 ml/min Est GFR (Non-Af Amer) 120.0 ml/min BUN/Creatinine Ratio 19.7 (10-20) Glucose 78 (70-99(Fasting)) mg/dl Calcium 8.3 L (8.5-10.1) mg/dl Total Bilirubin 0.9 (0.2-1.0) mg/dl AST 10 L (13-39) U/L ALT 6 L (7-52) U/L Alkaline Phosphatase 108 H (34-104) U/L Total Protein 6.5 (6.0-8.3) gm/dl Albumin 3.6 (3.4-5.0) gm/dl Globulin 2.9 (2.5-4.0) gm/dl Albumin/Globulin Ratio 1.2 (0.9-2) Triglycerides (0-150) mg/dl Amylase 98 (25-115) U/L Lipase 46 (11-82) U/L Urine Color Urine Appearance (Clear) Urine pH (4.5-7.5) Ur Specific [place] (1.000-1.030) Urine Protein (Negative) Urine Glucose (UA) (Negative) Urine Ketones (Negative) Urine Blood (Negative) Urine Nitrite (Negative) Urine Bilirubin (Negative) Urine Urobilinogen (Negative) Ur Leukocyte Esterase (Negative) Urine WBC (Auto) (0-5) /hpf Urine RBC (Auto) (0-4) /hpf U Hyaline Cast (Auto) (0-5) /lpf U Epithel Cells (Auto) (0-5) /lpf Urine Bacteria (Auto) (Negative) Amniotic Protein NEG Hepatitis A IgM Ab (NON-REACTIVE) Hep Bs Antigen (NON-REACTIVE) Hep Bs Ag Confirmation Hep B Core IgM Ab (NON-REACTIVE) Hepatitis C Ab (EIA) (NON-REACTIVE) Hep C Ab Signal/Cutoff (<1.00) 02/04/22 02/04/22 02/04/22 Range/Units 09:35 11:19 11:19 WBC (4.8-10.8) K/ul RBC (3.93-5.22) M/uL Hgb (12.0-16.0) g/dl Hct (34.1-44.9) % MCV (80.0-100.0) fL MCH (25.0-34.0) pg MCHC (32.0-36.0) g/dL RDW Std Deviation (36.4-46.3) fL RDW Coeff of Alonso (11.5-14.5) % Plt Count (130-400) K/uL MPV (9.4-12.3) fL Immature Gran % (Auto) % Neut % (Auto) % Lymph % (Auto) % [place] % (Auto) % Eos % (Auto) % Baso % (Auto) % Neut # (Auto) (1.4-6.5) K/uL Lymph # (Auto) (1.2-3.4) K/uL [place] # (Auto) (0.24-0.82) K/uL Eos # (Auto) (0-0.50) K/uL Baso # (Auto) (0-0.2) K/uL Immature Gran # (Auto) (0.00-0.02) K/uL Sodium (136-145) mmol/L Potassium (3.5-5.1) mmol/L Chloride (98-107) mmol/L Carbon Dioxide (21-32) mmol/L Anion Gap (3-11) BUN (6-23) mg/dl Creatinine (0.6-1.2) mg/dl Est Cr Clr Drug Dosing ml/min Est GFR ( Amer) ml/min Est GFR (Non-Af Amer) ml/min BUN/Creatinine Ratio (10-20) Glucose (70-99(Fasting)) mg/dl Calcium (8.5-10.1) mg/dl Total Bilirubin (0.2-1.0) mg/dl AST (13-39) U/L ALT (7-52) U/L Alkaline Phosphatase (34-104) U/L Total Protein (6.0-8.3) gm/dl Albumin (3.4-5.0) gm/dl Globulin (2.5-4.0) gm/dl Albumin/Globulin Ratio (0.9-2) Triglycerides 243 H (0-150) mg/dl Amylase (25-115) U/L Lipase (11-82) U/L Urine Color Yellow Urine Appearance Clear (Clear) Urine pH 5.5 (4.5-7.5) Ur Specific [place] 1.028 (1.000-1.030) Urine Protein 1+ H (Negative) Urine Glucose (UA) Negative (Negative) Urine Ketones 4+ H (Negative) Urine Blood 2+ H (Negative) Urine Nitrite Negative (Negative) Urine Bilirubin Negative (Negative) Urine Urobilinogen Negative (Negative) Ur Leukocyte Esterase Negative (Negative) Urine WBC (Auto) 5-10 H (0-5) /hpf Urine RBC (Auto) 5-10 H (0-4) /hpf U Hyaline Cast (Auto) 1-5 (0-5) /lpf U Epithel Cells (Auto) >30 H (0-5) /lpf Urine Bacteria (Auto) 1+ H (Negative) Amniotic Protein Hepatitis A IgM Ab NON-REACTIVE (NON-REACTIVE) Hep Bs Antigen NON-REACTIVE (NON-REACTIVE) Hep Bs Ag Confirmation TNP Hep B Core IgM Ab NON-REACTIVE (NON-REACTIVE) Hepatitis C Ab (EIA) NON-REACTIVE (NON-REACTIVE) Hep C Ab Signal/Cutoff 0.03 (<1.00) 02/04/22 02/05/22 02/06/22 Range/Units 12:21 06:58 06:03 WBC 16.51 H 12.11 H (4.8-10.8) K/ul RBC 4.08 3.50 L (3.93-5.22) M/uL Hgb 12.7 11.0 L 11.4 L (12.0-16.0) g/dl Hct 37.1 31.2 L 32.5 L (34.1-44.9) % MCV 90.9 89.1 (80.0-100.0) fL MCH 31.1 31.4 (25.0-34.0) pg MCHC 34.2 35.3 (32.0-36.0) g/dL RDW Std Deviation 38.5 37.8 (36.4-46.3) fL RDW Coeff of Alonso 11.7 11.9 (11.5-14.5) % Plt Count 234 200 (130-400) K/uL MPV 9.6 9.6 (9.4-12.3) fL Immature Gran % (Auto) 1.0 % Neut % (Auto) 73.2 % Lymph % (Auto) 16.8 % [place] % (Auto) 8.1 % Eos % (Auto) 0.7 % Baso % (Auto) 0.2 % Neut # (Auto) 8.87 H (1.4-6.5) K/uL Lymph # (Auto) 2.03 (1.2-3.4) K/uL [place] # (Auto) 0.98 H (0.24-0.82) K/uL Eos # (Auto) 0.09 (0-0.50) K/uL Baso # (Auto) 0.02 (0-0.2) K/uL Immature Gran # (Auto) 0.12 H (0.00-0.02) K/uL Sodium (136-145) mmol/L Potassium (3.5-5.1) mmol/L Chloride (98-107) mmol/L Carbon Dioxide (21-32) mmol/L Anion Gap (3-11) BUN (6-23) mg/dl Creatinine (0.6-1.2) mg/dl Est Cr Clr Drug Dosing ml/min Est GFR ( Amer) ml/min Est GFR (Non-Af Amer) ml/min BUN/Creatinine Ratio (10-20) Glucose (70-99(Fasting)) mg/dl Calcium (8.5-10.1) mg/dl Total Bilirubin (0.2-1.0) mg/dl AST (13-39) U/L ALT (7-52) U/L Alkaline Phosphatase (34-104) U/L Total Protein (6.0-8.3) gm/dl Albumin (3.4-5.0) gm/dl Globulin (2.5-4.0) gm/dl Albumin/Globulin Ratio (0.9-2) Triglycerides (0-150) mg/dl Amylase (25-115) U/L Lipase (11-82) U/L Urine Color Urine Appearance (Clear) Urine pH (4.5-7.5) Ur Specific [place] (1.000-1.030) Urine Protein (Negative) Urine Glucose (UA) (Negative) Urine Ketones (Negative) Urine Blood (Negative) Urine Nitrite (Negative) Urine Bilirubin (Negative) Urine Urobilinogen (Negative) Ur Leukocyte Esterase (Negative) Urine WBC (Auto) (0-5) /hpf Urine RBC (Auto) (0-4) /hpf U Hyaline Cast (Auto) (0-5) /lpf U Epithel Cells (Auto) (0-5) /lpf Urine Bacteria (Auto) (Negative) Amniotic Protein Hepatitis A IgM Ab (NON-REACTIVE) Hep Bs Antigen (NON-REACTIVE) Hep Bs Ag Confirmation Hep B Core IgM Ab (NON-REACTIVE) Hepatitis C Ab (EIA) (NON-REACTIVE) Hep C Ab Signal/Cutoff (<1.00) PE: General: Alert, orientedx3, NAD CVS: S1S2 RRR Lungs; CTAB Abd: soft, NT, ND, fundus firm, below Umbilicus, BS diminished Incision/ U[place]do: Clean, dry, intact Perineum intact, Lochia rubra minimal Ext; NT, no edema AP: 31 yo s/p C Section, pod# 2 VSS Afebrile doing well except nausea with belching Decreased BS, NT, soft, no distension Plan to add PO Reglan, Pepcid, Miralax and contact hospitalist for further recommendations Continue routine postop care Encourage ambulation, PO intake All questions were answered D/C home tonight if feels well Results & Data ([facility]) Vital Signs (Past 12 Hours) Vital Signs Temp Pulse Resp BP Pulse Ox O2 Del Method 02/06/22 04:15 36.7 C 02/06/22 00:25 36.8 C 82 16 104/65 96 Room Air
[2022-02-06] MEDS ORDERED: SIMETHICONE 80 MG CHEW PO PRN (08:56)
[2022-02-06] MEDS ORDERED: FAMOTIDINE 20 MG TAB PO SCH (09:00)
[2022-02-06] MEDS: METOCLOPRAMIDE HCL INJ 5 MG/ML 2 ML VIAL IV PRN ×2 (09:38→17:21)
[2022-02-06] MEDS: DOCUSATE SODIUM 100 MG CAP PO SCH ×2 (09:57→22:25)
[2022-02-06] MEDS: PRENATAL VITAMIN 1 TAB PO SCH (09:57)
[2022-02-06] MEDS: CETIRIZINE HCL 10 MG TABLET PO SCH (09:57)
[2022-02-06] MEDS: SIMETHICONE 80 MG CHEW PO SCH ×4 (09:57→22:25)
[2022-02-06] MEDS: FERROUS SULFATE 325 MG TAB PO SCH (09:57)
[2022-02-06] MEDS: D5NSS + 20MEQ KCL 20 MEQ/1,000 ML BAG IV SCH ×2 (10:44→18:15)
[2022-02-06] MEDS: PROMETHAZINE HCL 25 MG in SODIUM CHLORIDE 0.9% 50 ML IV PRN ×2 (12:03→21:58)
[2022-02-06] MEDS: FAMOTIDINE 20 MG in SYRINGE 3 ML IV SCH ×2 (12:03→21:58)
--- NOTE | 2022-02-06 12:35 | Hospitalist Progress Note ---
Date of Service February 06, 2022 Assessment & Plan (1) Nausea and vomiting during : Plan: - initially resolved after delivery 02/04/2022 - tolerated full diet yesterday and symptoms of nausea, bloating, belching developed this morning - had small episode of vomiting after abdominal palpation this morning - would get CBC, BMP, mg, phos to evaluate for electrolytes and leukocytosis - continue anti-emetics as ordered - simethicone for bloating and abdominal discomfort - passing flatus but no BM - abdomen soft, tender post surgery - if not passing gas or abdomen becomes more distended, would get KUB to start - continue supportive care (2) Acute dehydration: Plan: - s/p IVF - continue as needed while not tolerating PO (3) COVID-19: Plan: - had reproted diagnosis 1 month prior to admission - positive again 02/03/2022 - unclear if contributing to current symptoms or if this represents reinfection - not hypoxic and afebrile - no indication for treatment for COVID19 at this time Plan Thank you for the consultation. Please call medicine service with any questions or concerns. Poncho Blake MD [facility] Medicine Admission and Anticipated Discharge Date Admission Date: February 04, 2022 Subjective Patient s/p delivery 02/04/2022 and had initial improvement in n/v but overnight yesterday to today was having increased abdominal discomfort with bloating sensation and large belching. Patient passing gas but no BM at this time. Did have one episode of nausea and small vomitus this morning after abdominal palpation. Tolerated diet all day yesterday, symptoms started overnight and this morning. Denies chest pain, shortness of breath, diarrhea, dysuria, cough. Review of Systems Review of Systems: All systems reviewed & are unremarkable except as noted in Subjective Physical Exam Physical Exam: GENERAL: Patient is in no acute distress, lying in bed on knees and head down as lying supine gives her abdominal discomfort HEENT: MMM, pupils equal, no erythema CV: RRR, no murmurs RRR: even, unlabored, CTAB, no wheezes ABD: soft, nondistended, surgical dressing in place EXT.: no edema or rashes Skin: no rashes, erythema, wounds Neuro: AAOX3, no gross motor deficits Results & Data Results & Data ([facility]) Vital Signs (Past 12 Hours) Vital Signs Temp Pulse Resp BP O2 Del Method 02/06/22 09:13 36.6 C 68 16 135/94 Room Air 02/06/22 04:15 36.7 C Diagnostic Findings Laboratory Results WBC 12.11 K/ul (4.8-10.8) H 02/05/22 06:58 RBC 3.50 M/uL (3.93-5.22) L 02/05/22 06:58 Hgb 11.4 g/dl (12.0-16.0) L 02/06/22 06:03 Hct 32.5 % (34.1-44.9) L 02/06/22 06:03 MCV 89.1 fL (80.0-100.0) 02/05/22 06:58 MCH 31.4 pg (25.0-34.0) 02/05/22 06:58 MCHC 35.3 g/dL (32.0-36.0) 02/05/22 06:58 RDW Std Deviation 37.8 fL (36.4-46.3) 02/05/22 06:58 RDW Coeff of Alonso 11.9 % (11.5-14.5) 02/05/22 06:58 Plt Count 200 K/uL (130-400) 02/05/22 06:58 MPV 9.6 fL (9.4-12.3) 02/05/22 06:58 Immature Gran % (Auto) 1.0 % 02/05/22 06:58 Neut % (Auto) 73.2 % 02/05/22 06:58 Lymph % (Auto) 16.8 % 02/05/22 06:58 [place] % (Auto) 8.1 % 02/05/22 06:58 Eos % (Auto) 0.7 % 02/05/22 06:58 Baso % (Auto) 0.2 % 02/05/22 06:58 Neut # (Auto) 8.87 K/uL (1.4-6.5) H 02/05/22 06:58 Lymph # (Auto) 2.03 K/uL (1.2-3.4) 02/05/22 06:58 [place] # (Auto) 0.98 K/uL (0.24-0.82) H 02/05/22 06:58 Eos # (Auto) 0.09 K/uL (0-0.50) 02/05/22 06:58 Baso # (Auto) 0.02 K/uL (0-0.2) 02/05/22 06:58 Immature Gran # (Auto) 0.12 K/uL (0.00-0.02) H 02/05/22 06:58 Sodium 135 mmol/L (136-145) L 02/04/22 08:54 Potassium 4.0 mmol/L (3.5-5.1) 02/04/22 08:54 Chloride 104 mmol/L (98-107) 02/04/22 08:54 Carbon Dioxide 20 mmol/L (21-32) L 02/04/22 08:54 Anion Gap 11 (3-11) 02/04/22 08:54 BUN 12 mg/dl (6-23) 02/04/22 08:54 Creatinine 0.61 mg/dl (0.6-1.2) 02/04/22 08:54 Est Cr Clr Drug Dosing 140.7 ml/min 02/04/22 08:54 Est GFR ( Amer) 139.0 ml/min 02/04/22 08:54 Est GFR (Non-Af Amer) 120.0 ml/min 02/04/22 08:54 BUN/Creatinine Ratio 19.7 (10-20) 02/04/22 08:54 Glucose 78 mg/dl (70-99(Fasting)) 02/04/22 08:54 Calcium 8.3 mg/dl (8.5-10.1) L 02/04/22 08:54 Total Bilirubin 0.9 mg/dl (0.2-1.0) 02/04/22 08:54 AST 10 U/L (13-39) L 02/04/22 08:54 ALT 6 U/L (7-52) L 02/04/22 08:54 Alkaline Phosphatase 108 U/L (34-104) H 02/04/22 08:54 Total Protein 6.5 gm/dl (6.0-8.3) 02/04/22 08:54 Albumin 3.6 gm/dl (3.4-5.0) 02/04/22 08:54 Globulin 2.9 gm/dl (2.5-4.0) 02/04/22 08:54 Albumin/Globulin Ratio 1.2 (0.9-2) 02/04/22 08:54 Triglycerides 243 mg/dl (0-150) H 02/04/22 11:19 Amylase 98 U/L (25-115) 02/04/22 08:54 Lipase 46 U/L (11-82) 02/04/22 08:54 Urine Color Yellow 02/04/22 09:35 Urine Appearance Clear (Clear) 02/04/22 09:35 Urine pH 5.5 (4.5-7.5) 02/04/22 09:35 Ur Specific [place] 1.028 (1.000-1.030) 02/04/22 09:35 Urine Protein 1+ (Negative) H 02/04/22 09:35 Urine Glucose (UA) Negative (Negative) 02/04/22 09:35 Urine Ketones 4+ (Negative) H 02/04/22 09:35 Urine Blood 2+ (Negative) H 02/04/22 09:35 Urine Nitrite Negative (Negative) 02/04/22 09:35 Urine Bilirubin Negative (Negative) 02/04/22 09:35 Urine Urobilinogen Negative (Negative) 02/04/22 09:35 Ur Leukocyte Esterase Negative (Negative) 02/04/22 09:35 Urine WBC (Auto) 5-10 /hpf (0-5) H 02/04/22 09:35 Urine RBC (Auto) 5-10 /hpf (0-4) H 02/04/22 09:35 U Hyaline Cast (Auto) 1-5 /lpf (0-5) 02/04/22 09:35 U Epithel Cells (Auto) >30 /lpf (0-5) H 02/04/22 09:35 Urine Bacteria (Auto) 1+ (Negative) H 02/04/22 09:35 Amniotic Protein NEG 02/04/22 08:38 Hepatitis A IgM Ab NON-REACTIVE (NON-REACTIVE) 02/04/22 11:19 Hep Bs Antigen NON-REACTIVE (NON-REACTIVE) 02/04/22 11:19 Hep Bs Ag Confirmation TNP 02/04/22 11:19 Hep B Core IgM Ab NON-REACTIVE (NON-REACTIVE) 02/04/22 11:19 Hepatitis C Ab (EIA) NON-REACTIVE (NON-REACTIVE) 02/04/22 11:19 Hep C Ab Signal/Cutoff 0.03 (<1.00) 02/04/22 11:19 Medications Administered Current Inpatient Medications Acetaminophen (Acetaminophen 325 Mg Tab) 650 mg PO Q4H PRN PRN Reason: Pain Stop: 03/07/22 17:37 Last Admin: 02/06/22 06:36 Dose: 650 mg Benzocaine (Benzocaine 20% Aer Spr 82.5 Gm Can) 1 appln EXT UD PRN PRN Reason: use on skin as needed Stop: 03/06/22 18:51 Bisacodyl (Bisacodyl 10 Mg Supp) 10 mg OK PRN PRN PRN Reason: Constipation Stop: 03/08/22 18:10 Cetirizine HCl (Cetirizine Hcl 10 Mg Tablet) 10 mg PO QAM [facility] Stop: 03/07/22 09:29 Last Admin: 02/06/22 09:57 Dose: Not Given Diphenhydramine HCl (Diphenhydramine Capsule 25 Mg Cap) 25 mg PO QID PRN PRN Reason: Itching Stop: 03/06/22 18:51 Diphenhydramine HCl (Diphenhydramine 50 Mg/Ml Vial) 25 mg IV QID PRN PRN Reason: Itching Stop: 03/06/22 18:51 Docusate Sodium (Docusate Sodium 100 Mg Cap) 100 mg PO DAILY@, [facility] Stop: 03/06/22 20:59 Last Admin: 02/06/22 09:57 Dose: Not Given Famotidine (Famotidine 20 Mg Tab) 20 mg PO BID [facility] Stop: 03/08/22 08:59 Ferrous Sulfate (Ferrous Sulfate 325 Mg Tab) 325 mg PO DAILY@08 [facility] Stop: 03/07/22 07:59 Last Admin: 02/06/22 09:57 Dose: Not Given Hydrocortisone (Hydrocortisone Acetate 25 Mg Supp) 25 mg OK BID PRN PRN Reason: Hemorrhoids Stop: 03/06/22 18:51 Promethazine HCl 25 mg/ Sodium (Chloride) 51 mls @ 204 mls/hr IV Q6H PRN PRN Reason: Nausea And Vomiting Stop: 03/06/22 07:52 Last Admin: 02/06/22 12:03 Dose: 204 mls/hr Oxytocin (Pitocin) 30 units in 500 mls @ 333.333 mls/hr IV .Q1H30M PRN; Protocol PRN Reason: Bleeding Control Stop: 03/06/22 12:08 Potassium Chloride/Dextrose/Sod Cl (D5nss + 20meq Kcl) 20 meq in 1,000 mls @ 150 mls/hr IV .Q6H40M [facility]; Protocol Stop: 03/08/22 10:29 Last Admin: 02/06/22 10:44 Dose: 150 mls/hr Famotidine 20 mg/ Syringe 5 mls @ 2.5 mls/min IV Q12 [facility] Stop: 03/08/22 11:29 Last Admin: 02/06/22 12:03 Dose: 2.5 mls/min Lidocaine HCl (Lidocaine 1% Local 20 Ml Vial) 20 ml INFIL ONCE PRN PRN Reason: Perineal/vaginal Repair Stop: 03/06/22 12:08 Magnesium Hydroxide (Magnesium Hydroxide Susp 30 Ml Udc) 30 ml PO HS PRN PRN Reason: Constipation Stop: 03/06/22 18:51 Meperidine HCl (Meperidine Hcl 50 Mg/Ml Carp) 50 - 75 mg IV Q4H PRN PRN Reason: Pain Stop: 02/18/22 18:51 Metoclopramide HCl (Metoclopramide Hcl Inj 5 Mg/Ml 2 Ml Vial) 10 mg IV Q6H PRN PRN Reason: Nausea Stop: 03/06/22 07:53 Last Admin: 02/06/22 09:38 Dose: 10 mg Metoclopramide HCl (Metoclopramide Hcl 10 Mg Tablet) 10 mg PO Q6H PRN PRN Reason: nausea and vomiting Stop: 03/06/22 18:51 Ondansetron HCl (Ondansetron Inj 2 Mg/Ml 2 Ml Vial) 4 mg IV Q4H PRN PRN Reason: Nausea And Vomiting Stop: 03/06/22 07:52 Last Admin: 02/04/22 15:56 Dose: 4 mg Ondansetron HCl (Ondansetron 4 Mg Od Tab) 4 mg PO Q4H PRN PRN Reason: Nausea And Vomiting Stop: 03/06/22 07:52 Last Admin: 02/06/22 04:23 Dose: 4 mg Ondansetron HCl (Ondansetron Inj 2 Mg/Ml 2 Ml Vial) 4 mg IV Q4H PRN PRN Reason: Nausea And Vomiting Stop: 03/06/22 18:51 Oxycodone/Acetaminophen (Oxycodone/Acetaminophen 5mg/325mg Tab) 1 - 2 tab PO Q4H PRN PRN Reason: Pain Stop: 02/18/22 18:51 Last Admin: 02/05/22 22:45 Dose: 1 tab Polyethylene Glycol (Polyethylene (Miralax) 17 Gm Pack) 17 gm PO DAILY [facility] Stop: 03/08/22 08:59 Prenat Multivit/Orange/Iron/Folic Ac ( Vitamin 1 Tab) 1 tab PO DAILY@08 [facility] Stop: 03/07/22 07:59 Last Admin: 02/06/22 09:57 Dose: Not Given Sennosides (Senna 8.6 Mg Tab) 17.2 mg PO HS PRN PRN Reason: Constipation Stop: 03/06/22 18:51 Simethicone (Simethicone 80 Mg Chew) 80 mg PO DAILY@08,13,17,21 [facility] Stop: 03/06/22 20:59 Last Admin: 02/06/22 09:57 Dose: Not Given Simethicone (Simethicone 80 Mg Chew) 80 mg PO Q6H PRN PRN Reason: bloating Stop: 03/08/22 08:55
[2022-02-06 13:04] LABS: Basophils # (auto) 0.01 K/uL (0-0.2); Basophils % (auto) 0.1 %; Eosinophils # (auto) 0.01 K/uL (0-0.50); Eosinophils % (auto) 0.1 %; Hematocrit (blood only) 30.8 % (34.1-44.9); Hemoglobin 10.8 g/dl (12.0-16.0); Immature Granulocytes # (auto) 0.04 K/uL (0.00-0.02); Immature Granulocytes % (auto) 0.4 %; Lymphocytes # (auto) 0.98 K/uL (1.2-3.4); Lymphocytes % (auto) 9.9 %; Mean Corpuscular Hemoglobin 31.2 pg (25.0-34.0); Mean Corpuscular Hgb Conc 35.1 g/dL (32.0-36.0); Mean Platelet Volume 9.5 fL (9.4-12.3); Monocytes # (auto) 0.39 K/uL (0.24-0.82); Neutrophils # (auto) 8.42 K/uL (1.4-6.5); Neutrophils % (auto) 85.5 %; Platelet Count 188 K/uL (130-400); RDW Coefficient of Variation 11.8 % (11.5-14.5); RDW Standard Deviation 37.6 fL (36.4-46.3); Red Blood Count 3.46 M/uL (3.93-5.22); White Blood Count 9.85 K/ul (4.8-10.8)
[2022-02-06] MEDS: ONDANSETRON INJ 2 MG/ML 2 ML VIAL IV PRN (15:10)
[2022-02-06] MEDS ORDERED: bisacodyL 10 MG SUPP PR PRN (18:11)
[2022-02-06] MEDS: miSOPROStoL 50 MCG TAB PO SCH ×2 (19:05→19:06)
[2022-02-06] MEDS: LACTATED RINGER'S 1,000 ML IV SCH (19:05)
[2022-02-06] MEDS: POLYETHYLENE (MIRALAX) 17 GM PACK PO SCH (20:37)
[2022-02-07] MEDS: D5NSS + 20MEQ KCL 20 MEQ/1,000 ML BAG IV SCH ×2 (00:54→10:12)
[2022-02-07] MEDS: METOCLOPRAMIDE HCL INJ 5 MG/ML 2 ML VIAL IV PRN (07:47)
[2022-02-07] MEDS: CETIRIZINE HCL 10 MG TABLET PO SCH (08:00)
[2022-02-07] MEDS: POLYETHYLENE (MIRALAX) 17 GM PACK PO SCH (08:48)
[2022-02-07] MEDS: SIMETHICONE 80 MG CHEW PO SCH (08:50)
[2022-02-07] MEDS: FERROUS SULFATE 325 MG TAB PO SCH (08:53)
[2022-02-07] MEDS: PRENATAL VITAMIN 1 TAB PO SCH (08:53)
[2022-02-07] MEDS: DOCUSATE SODIUM 100 MG CAP PO SCH (08:53)
[2022-02-07] MEDS: FAMOTIDINE 20 MG in SYRINGE 3 ML IV SCH (09:56)
[2022-02-07] MEDS: ONDANSETRON 4 MG OD TAB PO PRN (10:02)
--- NOTE | 2022-02-07 10:31 | Obstetrical Progress Note ---
Date of Service February 07, 2022 Subjective Ambulation: ambulating normally Voiding: no voiding problems Passing Gas:: Yes Diet Tolerance:: regular diet Lochia:: Small Feeding Type:: breast feeding Current Pain Level(1-10): 0 doing well. no further n/v Physical Exam Constitutional WD/WN, vitals as above Gastrointestinal (Abdomen) Inspection/Auscultation: abdomen normal to inspection and + abdominal surgical incision Percussion/Palpation: abdomen soft Musculoskeletal Extremities: extremities normal to inspection Skin no rashes, warm and dry Neurologic patellar DTR's 2+ bilat, sensation intact Psychiatric A+Ox3, euthymic affect Results & Data ([facility]) Vital Signs (Past 12 Hours) Vital Signs Temp Pulse Pulse Resp BP BP Pulse Ox 02/07/22 07:55 37.1 C 61 20 144/88 H 96 02/07/22 00:40 36.7 C 65 16 135/85 97 O2 Del Method 02/07/22 07:55 Room Air 02/07/22 00:40 Room Air Laboratory Results Laboratory Results - last 24 hr 02/06/22 12:54 WBC 9.85 RBC 3.46 L Hgb 10.8 L Hct 30.8 L MCV 89.0 MCH 31.2 MCHC 35.1 RDW Std Deviation 37.6 RDW Coeff of Alonso 11.8 Plt Count 188 MPV 9.5 Immature Gran % (Auto) 0.4 Neut % (Auto) 85.5 Lymph % (Auto) 9.9 [place] % (Auto) 4.0 Eos % (Auto) 0.1 Baso % (Auto) 0.1 Neut # (Auto) 8.42 H Lymph # (Auto) 0.98 L [place] # (Auto) 0.39 Eos # (Auto) 0.01 Baso # (Auto) 0.01 Immature Gran # (Auto) 0.04 H
--- NOTE | 2022-02-07 12:19 | Hospitalist Progress Note ---
Date of Service February 07, 2022 Assessment & Plan (1) Nausea and vomiting during : Plan: - initially resolved after delivery 02/04/2022 - tolerated full diet yesterday and symptoms of nausea, bloating, belching developed this morning - much improved today 02/07/2022 - patient being discharged home (2) Acute dehydration: Plan: - s/p IVF - continue as needed while not tolerating PO (3) COVID-19: Plan: - had reproted diagnosis 1 month prior to admission - positive again 02/03/2022 - unclear if contributing to current symptoms or if this represents reinfection - not hypoxic and afebrile - no indication for treatment for COVID19 at this time Plan Thank you for the consultation. Please call medicine service with any questions or concerns. Poncho Blake MD [facility] Medicine Admission and Anticipated Discharge Date Admission Date: February 04, 2022 Subjective Patient s/p delivery 02/04/2022. Was called back 02/06/2022 for worsening nausea and abdominal discomfort. Patient treated symptomatically with IVF, anti-emetics, simethicone. Improved overnight to today and tolerating PO. Patient being discharged home today 02/07/2022. Review of Systems Review of Systems: All systems reviewed & are unremarkable except as noted in Subjective Physical Exam Physical Exam: GENERAL: Patient is in no acute distress, sitting up, appears well HEENT: MMM, pupils equal, no erythema CV: RRR, no murmurs RRR: even, unlabored, CTAB, no wheezes ABD: deferred as was just examined and patient reports abdomen is soft and mild discomfort from EXT.: no edema or rashes Skin: no rashes, erythema, wounds Neuro: AAOX3, no gross motor deficits Results & Data Results & Data ([facility]) Vital Signs (Past 12 Hours) Vital Signs Temp Pulse Pulse Pulse Resp BP BP 02/07/22 10:41 37.1 C 65 82 61 20 135/85 144/88 H 02/07/22 07:55 37.1 C 61 20 144/88 H 02/07/22 00:40 36.7 C 65 16 135/85 Pulse Ox O2 Del Method 02/07/22 10:41 96 02/07/22 07:55 96 Room Air 02/07/22 00:40 97 Room Air Diagnostic Findings Laboratory Results WBC 9.85 K/ul (4.8-10.8) 02/06/22 12:54 RBC 3.46 M/uL (3.93-5.22) L 02/06/22 12:54 Hgb 10.8 g/dl (12.0-16.0) L 02/06/22 12:54 Hct 30.8 % (34.1-44.9) L 02/06/22 12:54 MCV 89.0 fL (80.0-100.0) 02/06/22 12:54 MCH 31.2 pg (25.0-34.0) 02/06/22 12:54 MCHC 35.1 g/dL (32.0-36.0) 02/06/22 12:54 RDW Std Deviation 37.6 fL (36.4-46.3) 02/06/22 12:54 RDW Coeff of Alonso 11.8 % (11.5-14.5) 02/06/22 12:54 Plt Count 188 K/uL (130-400) 02/06/22 12:54 MPV 9.5 fL (9.4-12.3) 02/06/22 12:54 Immature Gran % (Auto) 0.4 % 02/06/22 12:54 Neut % (Auto) 85.5 % 02/06/22 12:54 Lymph % (Auto) 9.9 % 02/06/22 12:54 [place] % (Auto) 4.0 % 02/06/22 12:54 Eos % (Auto) 0.1 % 02/06/22 12:54 Baso % (Auto) 0.1 % 02/06/22 12:54 Neut # (Auto) 8.42 K/uL (1.4-6.5) H 02/06/22 12:54 Lymph # (Auto) 0.98 K/uL (1.2-3.4) L 02/06/22 12:54 [place] # (Auto) 0.39 K/uL (0.24-0.82) 02/06/22 12:54 Eos # (Auto) 0.01 K/uL (0-0.50) 02/06/22 12:54 Baso # (Auto) 0.01 K/uL (0-0.2) 02/06/22 12:54 Immature Gran # (Auto) 0.04 K/uL (0.00-0.02) H 02/06/22 12:54 Sodium 135 mmol/L (136-145) L 02/04/22 08:54 Potassium 4.0 mmol/L (3.5-5.1) 02/04/22 08:54 Chloride 104 mmol/L (98-107) 02/04/22 08:54 Carbon Dioxide 20 mmol/L (21-32) L 02/04/22 08:54 Anion Gap 11 (3-11) 02/04/22 08:54 BUN 12 mg/dl (6-23) 02/04/22 08:54 Creatinine 0.61 mg/dl (0.6-1.2) 02/04/22 08:54 Est Cr Clr Drug Dosing 140.7 ml/min 02/04/22 08:54 Est GFR ( Amer) 139.0 ml/min 02/04/22 08:54 Est GFR (Non-Af Amer) 120.0 ml/min 02/04/22 08:54 BUN/Creatinine Ratio 19.7 (10-20) 02/04/22 08:54 Glucose 78 mg/dl (70-99(Fasting)) 02/04/22 08:54 Calcium 8.3 mg/dl (8.5-10.1) L 02/04/22 08:54 Total Bilirubin 0.9 mg/dl (0.2-1.0) 02/04/22 08:54 AST 10 U/L (13-39) L 02/04/22 08:54 ALT 6 U/L (7-52) L 02/04/22 08:54 Alkaline Phosphatase 108 U/L (34-104) H 02/04/22 08:54 Total Protein 6.5 gm/dl (6.0-8.3) 02/04/22 08:54 Albumin 3.6 gm/dl (3.4-5.0) 02/04/22 08:54 Globulin 2.9 gm/dl (2.5-4.0) 02/04/22 08:54 Albumin/Globulin Ratio 1.2 (0.9-2) 02/04/22 08:54 Triglycerides 243 mg/dl (0-150) H 02/04/22 11:19 Amylase 98 U/L (25-115) 02/04/22 08:54 Lipase 46 U/L (11-82) 02/04/22 08:54 Urine Color Yellow 02/04/22 09:35 Urine Appearance Clear (Clear) 02/04/22 09:35 Urine pH 5.5 (4.5-7.5) 02/04/22 09:35 Ur Specific [place] 1.028 (1.000-1.030) 02/04/22 09:35 Urine Protein 1+ (Negative) H 02/04/22 09:35 Urine Glucose (UA) Negative (Negative) 02/04/22 09:35 Urine Ketones 4+ (Negative) H 02/04/22 09:35 Urine Blood 2+ (Negative) H 02/04/22 09:35 Urine Nitrite Negative (Negative) 02/04/22 09:35 Urine Bilirubin Negative (Negative) 02/04/22 09:35 Urine Urobilinogen Negative (Negative) 02/04/22 09:35 Ur Leukocyte Esterase Negative (Negative) 02/04/22 09:35 Urine WBC (Auto) 5-10 /hpf (0-5) H 02/04/22 09:35 Urine RBC (Auto) 5-10 /hpf (0-4) H 02/04/22 09:35 U Hyaline Cast (Auto) 1-5 /lpf (0-5) 02/04/22 09:35 U Epithel Cells (Auto) >30 /lpf (0-5) H 02/04/22 09:35 Urine Bacteria (Auto) 1+ (Negative) H 02/04/22 09:35 Amniotic Protein NEG 02/04/22 08:38 Hepatitis A IgM Ab NON-REACTIVE (NON-REACTIVE) 02/04/22 11:19 Hep Bs Antigen NON-REACTIVE (NON-REACTIVE) 02/04/22 11:19 Hep Bs Ag Confirmation TNP 02/04/22 11:19 Hep B Core IgM Ab NON-REACTIVE (NON-REACTIVE) 02/04/22 11:19 Hepatitis C Ab (EIA) NON-REACTIVE (NON-REACTIVE) 02/04/22 11:19 Hep C Ab Signal/Cutoff 0.03 (<1.00) 02/04/22 11:19
--- NOTE | 2022-02-15 10:33 | Discharge Summary (DS) ---
DATE OF ADMISSION: 02/04/2022. DATE OF DISCHARGE: 02/07/2022. REASON FOR ADMISSION AND HOSPITAL COURSE: The patient is a 31-year-old G1, P0 at 37+ weeks with naus ea and vomiting for 3 days with dehydration. The patient had COVID approximately 1 month ago. She c luna in. She had been ruled out for rupture of membranes. She was given IV hydration. She subsequen tly after being monitored for heart tones. Despite continuous IV fluid boluses, still complaine d of nausea and vomiting. She had spontaneous rupture of membranes and then her heart tones became n onreassuring and at 37.2 weeks had a primary section. She underwent primary sectio n under epidural anesthesia, delivering a live female, Apgars were 8 and 9, weight 6 pounds 12 ounces. Hospital course was unremarkable. She was discharged home in stable condition on 02/07/2022. Regular diet on discharge. CONDITION ON DISCHARGE: Stable. FOLLOWUP: Follow up in the office in 1 week for incision check. MEDICATIONS: Include Percocet and Motrin for pain. DISCHARGE DIAGNOSES: Nonreassuring heart tones at 37.2 weeks. Job ID: [id number]
== END 2022-02-07 11:40 | disposition home or self-care (01) | DRG 806 ==
LOC: OPB 07:17 → 4S1 07:21 → 4E1 20:44